=== PATIENT | male | born 1935 | race Caucasian/White ===

== ENCOUNTER → 2023-07-27 12:41 | Outpatient (CLI) | payer MEDICARE, SELFPAY ==
--- NOTE | 2023-07-27 | DI.US.S_ITS ---
ULTRASOUND OF RIGHT AXILLA: 07/27/2023 CLINICAL: Palpable right axilla lump by physician. No prior exams were available for comparison. Color flow and real-time ultrasound of the right axilla were performed. Pringle scale images of the real-time examination were reviewed. There is a mass in the right axilla corresponding to area of concern measuring 6.4 x 4.6 x 7.5cm. IMPRESSION: HIGHLY SUGGESTIVE OF MALIGNANCY There is a mass in the right axilla corresponding to area of concern measuring 6.4 x 4.6 x 7.5cm. This is highly suspicious for malignancy, not necessarily breast cancer. Clinical followup and complete staging is recommended given history of melanoma. This was conveyed to the patient. This exam was interpreted at Station ID: [id number]. Electronically Signed By: Doni Gutierrez M.D. /:07/27/2023 13:47:36 letter sent: Biopsy Required Ultrasound BI-RADS: 5 Highly suggestive of malignancy
== END ==
PROVIDERS: Family Provider Internal Medicine; PCP Internal Medicine; Referring Provider Internal Medicine; Visit Provider Internal Medicine
DX: N63.31 Unspecified lump in axillary tail of the right breast (principal); Z85.820 Personal history of malignant melanoma of skin
CPT/HCPCS: 76882

== ENCOUNTER → 2023-08-16 10:39 | Outpatient (CLI) | payer MEDICARE, SELFPAY ==
--- NOTE | 2023-08-16 | DI.RAD.S_ITS ---
PROCEDURE: FL BARIUM SWALLOW W SPEECH INDICATIONS: DYSPHAGIA COMPARISON: None. TECHNIQUE: Examination was conducted in conjunction with speech pathology per standard protocol. In the lateral projection, filming was performed of the patient swallowing. AP projection filming may also be performed with patient swallowing. COMPARISON: FINDINGS: Suboptimal evaluation due to patient cooperation and positioning (despite multiple attempts). Function: Early spillage of contrast into vallecula. At least penetration with thin liquid barium. No aspiration with nectar thick barium. No aspiration with barium coated cracker. Morphology: No cricopharyngeal bar is identified. No cervical esophageal webs. No Zenker's diverticulum. No strictures. IMPRESSION: At least penetration with thin liquid barium, but no aspiration with nectar thick barium. Please see speech pathologist report for further discussion. Dictated by: Alok Dotson M.D. on 08/16/2023 at 13:13 Approved by: Alok Dotson M.D. on 08/16/2023 at 13:14
--- NOTE | 2023-08-16 15:19 | ST.SWALLOW ---
Visit Care Team Role Provider Type Jeremias Caal MD Family Provider Physician Primary Care Provider Specialty: Internal Medicine Address: [address] [place] [address], [address], [place], [address] Email: [email or web address] VINNIE Adrian Attending Provider Non-Staff Referring Provider Specialty: Medical Address: [address] [place] [address], [id number] Email: Modified Barium Swallow Study CRYPTOZOOLOGIST Modified Barium Swallow Study Start: 08/16/23 13:33 Freq: Status: Active Protocol: Document 08/16/23 13:33 LNK (Rec: 08/16/23 15:19 LNK [id number]) Modified Barium Swallow Study Total Time Visit Start Time 11:00 Visit Stop Time 12:00 Total Visit Minutes 60 Referral Referring Physician VINNIE Wasserman Reason for Referral dysphagia Setting Setting Outpatient Care Patient Information Identification Type Name,Date of ,ID Wristband Patient History Pt was seen for a Modified Barium Swallow Study secondary to frequent coughing drinking liquids during meals. Pt is a resident at [facility]. According to his caregiver, Pt is on a regular texture diet and honey thick liquids. Pt has a PMH that includes GERD (with prescribed medication), cervical spine stenosis and dementia. Caregiver reported that the pt does not have a history of pneumonia nor recurrent respiratory illness. MBSS ordered to determine pt's aspiration risk as well as aid in POC development. Subjective Observations Pt was brought to the fluoroscopy room via wheel chair and Ayse sling for transfer to fluoro chair. Pt was accompanied by his caregiver, who provided background information and history. Pt positioning and cooperation interfered with comprehensive study. However, there was adequate view of the pharynx, larynx and upper trachea in order to determine aspiration risk. Patient Positioning Position View Lateral Imaging Lateral View Textures Administered Trials Presented Thin Liquid via Spoon (IDDSI 0 ),Thin Liquid via Straw (IDDSI 0),Mildly Thick Liquid via Straw (IDDSI 2),Regular (IDDSI 7) Barium Tablet No The IDDSI Framework Protocol: IDDSI.1 Oral Impairment Source: The Modified Barium Swallow Impairment Profile (MBSImP??) Lip Closure Escape beyond mid-chin Tongue Control During Bolus Hold Escape to lateral buccal cavity/floor of mouth (FOM) Bolus Preparation/Mastication Slow prolonged chewing/mashing with complete re-collection Bolus Transport/Lingual Motion Repetitive/disorganized tongue motion Oral Residue Trace residue lining oral structures,Residue collection on oral structures Location Tongue Initiation of Pharyngeal Swallow Bolus head at posterior laryngeal surface of epiglottis Additional Oral Impairment Observations Pt was not cooperative with OME or DKS assessment. Informal observation indicated structures and function to be WFL. Natural dentition was noted in good hygiene. Speech was noted to be clearly produced. Mastication appeared to have a rotary chew with adequate bolus formation, control and AP transition. Swallow initiation was delayed with premature spillage to the valeculla observed across trials. Pharyngeal Impairment Source: The Modified Barium Swallow Impairment Profile (MBSImP??) Soft Palate Elevation No bolus between soft palate & pharyngeal wall Laryngeal Elevation Part.sup.move.thyroid cart/ part.approx.arytenoids to epiglot.petiole Anterior Hyoid Excursion Partial anterior movement Epiglottic Movement Partial inversion Laryngeal Vestibular Closure Incomplete; narrow column air/ contrast in laryngeal vestibule Pharyngeal Stripping Wave Present - diminished Pharyngoesophageal Segment Opening Partial distention/partial duration; partial obstruction of flow Tongue Base Retraction Wide column of contrast/air betwn tongue base & post. pharyngeal wall Pharyngeal Residue Trace residue within/on pharyngeal structures Location Diffuse (>3 areas) Additional Pharyngeal Impairment Overall, pharyngeal structures Observations were weakened with diminished base of tongue retraction, hyolaryngeal elevation and movement, epiglottic inversion and posterior pharyngeal stripping. Closure and seal of the laryngeal vestibule was inconsistent with laryngeal penetration noted x4. Reflexive cough was adequate to clear larynx. Secondary to pharyngeal weakness, overall pharyngeal pooling at the base of tongue and valeculla was observed to pool in the larynx and flow to the vocal folds, eliciting reflexive cough. Aspiration was noted x1 only when the pt vocalized mid- swallow with thin liquids. No aspiration was observed with nectar thick liquids or regular texture trials. Pt demonstrated adequate airway protection with nectar thick liquids. Reflexive throat clear and cough observed to be affective in clearing contrast. Pt use of straw was noted to be safe with a natural chin tuck. Consecutive nectar thick liquid swallows with a straw were safely tolerated. Regular texture solid trial was safely swallowed. A/P View The IDDSI Framework Protocol: IDDSI.1 A/P View Observations Additional A-P Observations No A-P view obtained Clinical Impressions Dysphagia Type Oral,Pharyngeal Findings Mild oropharyngeal dysphagia was observed secondary to diminished strength and function of structures, Although diminished, the observations are consistent with normal aging. Penetration in elderly pts is not outside the typical observations. Aspiration was noted once when the pt vocalized in protest. Esperance thick liquids and regular texture were safely tolerated. Pt's reflexive cough appears to be affective in clearing airway. Upgrade of liquids from honey thick to nectar thick is recommended. Additionally, a Sullivan Free Water protocol is recommended to aid in pt hydration and improve overall quality of life. Oral cleanliness immediately prior to small amounts of water is critical in order to reduce oral bacteria entering the airway should aspiration occur. Small amounts of water can be observed into the body if aspirated; therefore proper oral hygiene is critical. The MBSS images and above results were shared and discussed with the pt's caregiver with written recommendations provided. Caregiver indicated she understood and agreed with plan. All questions were answered to her satisfaction. Rehabilitation Potential Poor Patient Appropriate for Therapy No Recommendations Diet Liquids Order Mildly Thick (IDDSI 2) Diet Order Regular (IDDSI 7) Medication Recommendation As Tolerated Comments Straws ok - No more than 2 consecutive swallows from straw. Aspiration Precautions Recommended Precautions Upright at 90 Degrees,Frequent Rest Periods,Small Bites/Sips ,Chin Tuck Treatment Plan Therapy Strategy Recommendations Sitting Upright (90 deg),Chin Tuck,Double Swallow,Small Bites and Sips Placement Recommendation After Discharge [facility]
== END ==
LOC: RAD 10:41
PROVIDERS: Family Provider Internal Medicine; PCP Internal Medicine; Referring Provider Nurse Practitioner Family; Visit Provider Nurse Practitioner Family
DX: R05.9 Cough, unspecified (principal); R13.12 Dysphagia, oropharyngeal phase
CPT/HCPCS: 74230; 92611

== ENCOUNTER 2023-08-17 15:32 | Inpatient (IN) | payer MEDICARE, SELFPAY ==
[2023-08-17] VITALS (24 sets, daily range): BP systolic 89–178; BP diastolic 48–98; PULSE 104–136; RESP 17–50; TEMP 37.8–38.7; O2SAT 88–94; BMI 26.8
--- NOTE | 2023-08-17 15:41 | DI.RAD.S_ITS ---
PROCEDURE: XR CHEST 1V INDICATIONS: weakness TECHNIQUE: One view of the chest was acquired. COMPARISON: Merged With [facility], CR, XR CHEST 1V, 03/30/2020, 18:37. FINDINGS: Surgical changes and devices: None. Lungs and pleura: Left perihilar airspace opacity. Mediastinum: Mediastinal contours appear normal. Heart size is normal. Bones and chest wall: No suspicious bony lesions. Overlying soft tissues appear unremarkable. IMPRESSION: Left perihilar airspace opacity, concerning for infection or aspiration. Dictated by: Alok Dotson M.D. on 08/17/2023 at 17:09 Approved by: Alok Dotson M.D. on 08/17/2023 at 17:09
[2023-08-17 16:50] LABS: Add Manual Diff / Slide Review NO; Basophils Absolute Auto 200 /uL (0-100); Eosinophils Absolute Auto 200 /uL (0-450); Eosinophils Percent Auto 1.1 % (2-4); Hematocrit 25.8 % (41-53); Hemoglobin 7.9 g/dL (13.5-17.5); Lymphocytes Absolute Auto 1400 /uL (1100-4500); Lymphocytes Percent Auto 8.4 % (25-40); Mean Corpuscular HGB Conc 30.6 % (30-36); Mean Corpuscular Hemoglobin 21.2 PG (26-34); Mean Corpuscular Volume 69.3 fL (80-100); Monocytes Absolute Auto 1200 /uL (0-900); Monocytes Percent Auto 7.2 % (3-14); Neutrophils Absolute Auto 13900 /uL (1500-7000); Neutrophils Percent Auto 82.3 % (50-75); Platelet Count 603 X10^3/uL (150-400); Red Blood Cell Count 3.72 X10^6/uL (4.5-5.9); Red Cell Distribution Width 16.7 % (11.6-14.8); White Blood Cell Count 16.9 X10^3/uL (4.5-11.0)
[2023-08-17] MEDS: SODIUM CHLORIDE 0.9% 1,000 ML 1000 ML IV (16:53)
[2023-08-17] MEDS: ACETAMINOPHEN IV 1,000 MG/100 ML VIAL 400 MG IV (16:53)
[2023-08-17 17:01] LABS: Lactate (Lactic Acid) 3.2 mmol/L (0.7-2.1)
[2023-08-17 17:03] LABS: Alanine Aminotransferase 36 IU/L (<50); Albumin 3.7 g/dL (3.5-5.0); Albumin Globulin Ratio 0.9 (1.0-2.8); Alkaline Phosphatase 96 U/L (38-126); Aspartate Aminotransferase 34 IU/L (17-59); BUN Creatinine Ratio 19.4 (6-22); Bilirubin Total 0.5 mg/dL (0.2-1.3); Blood Urea Nitrogen 20 mg/dL (9-20); Calcium 8.8 mg/dL (8.4-10.2); Carbon Dioxide 25 mmol/L (22-32); Chloride 100 mmol/L (98-107); Creatine Kinase 22 U/L (55-170); Estimated Glomerular Filt Rate > 60 mL/min (>60); Globulin 3.9 g/dL (1.7-4.1); Glucose 153 mg/dL (80-110); HEMOLYSIS < 15 (0-50); Potassium 4.6 mmol/L (3.4-5.1); Sodium 136 mmol/L (137-145); Total Protein 7.6 g/dL (6.3-8.2)
[2023-08-17 17:10] LABS: Adenovirus Not Detected (Not Detect); B. parapertussis Not Detected (Not Detecte); Bordetella pertussis Not Detected (Not Detect); Chlamydophila pneumoniae Not Detected (Not Detect); Coronavirus 229E Not Detected (Not Detect); Coronavirus HKU1 Not Detected (Not Detect); Coronavirus NL 63 Not Detected (Not Detect); Coronavirus OC43 Not Detected (Not Detect); Human Metapneumovirus Not Detected (Not Detect); Human Rhinovirus/Enterovirus Not Detected (Not Detect); Influenza A Not Detected (Not Detect); Influenza B Not Detected (Not Detect); Mycoplasma pneumoniae Not Detected (Not Detect); Parainfluenza Virus 1 Not Detected (Not Detect); Parainfluenza Virus 2 Not Detected (Not Detect); Parainfluenza Virus 3 Not Detected (Not Detect); Parainfluenza Virus 4 Not Detected (Not Detect); Respiratory Syncytial Virus Not Detected (Not Detect); SARS- CoV-2 Not Detected (Not Detecte)
[2023-08-17 17:14] LABS: Troponin I < 0.012 ng/mL (0.01-0.034)
[2023-08-17 17:18] LABS: Procalcitonin 0.13 ng/mL (<0.5)
[2023-08-17 17:41] LABS: Microcytosis 1+; Platelet Estimate Increased on smear
--- NOTE | 2023-08-17 18:00 | ED_ITS ---
HPI - Chest Pain General Chief Complaint: Chest Pain Stated Complaint: Chest pain Time Seen by Provider: 08/17/23 15:41 Source: EMS Mode of arrival: EMS History of Present Illness HPI narrative: 87-year-old male with history of dementia, recurrent aspiration pneumonia, hypertension presents from [facility] for chest pain. History is obtained from at bedside as patient has profound dementia and is unable to provide meaningful history. Apparently earlier today patient complained of chest pain to nursing staff and he was brought to the ER for evaluation. states that patient has also had intermittent blood in his urine, his doctor at the nursing facility and prescribed Macrobid, however it has not been started yet due to difficulties with the pharmacy. Related Data Home Medications Medication Instructions Recorded Confirmed timolol maleate 0.5 % eye drops 1 drp EYE-LEFT DAILY 90 days #10 mL 02/20/18 08/17/23 acetaminophen 325 mg tablet 1 - 2 mg PO QID PRN Pain, Mild 08/17/23 08/17/23 aluminum-mag hydroxide-simethicone 15 ml PO QID PRN heart burn 08/17/23 08/17/23 200 mg-200 mg-20 mg/5 mL oral susp (Mintox) bisacodyl 5 mg tablet 5 mg PO BEDTIME 08/17/23 08/17/23 bisacodyl 5 mg tablet,delayed 5 mg PO BEDTIME 08/17/23 08/17/23 release brimonidine 0.2 % eye drops 1 drp EYE-LEFT DAILY 08/17/23 08/17/23 citalopram 10 mg tablet 10 mg PO DAILY 08/17/23 08/17/23 docusate sodium 100 mg capsule 100 mg PO DAILY 08/17/23 08/17/23 guaifenesin 100 mg/5 mL oral liquid 200 mg PO Q4H PRN Cough 08/17/23 08/17/23 ketoconazole 2 % topical cream 1 applic topical DAILY 08/17/23 08/17/23 latanoprost 0.005 % eye drops 1 drp EYE-LEFT DAILY 08/17/23 08/17/23 meloxicam 7.5 mg tablet 7.5 mg PO DAILY 08/17/23 08/17/23 polyethylene glycol 3350 4 gram 4 g PO DAILY 08/17/23 08/17/23 oral powder packet quetiapine 25 mg tablet 25 mg PO DAILY 08/17/23 08/17/23 rivastigmine 9.5 mg/24 hour 1 patch transdermal DAILY 08/17/23 08/17/23 transdermal patch Previous Rx's Medication Instructions Recorded ondansetron 4 mg disintegrating 4 mg PO Q6H PRN nausea and 05/07/21 tablet vomiting #60 tabs tamsulosin 0.4 mg capsule (Flomax) 0.4 mg PO QDAY #90 caps 01/10/22 Allergies Allergy/AdvReac Type Severity Reaction Status Date / Time fenofibrate [FENOFIBRATE] Allergy Mild MUSCLE PAIN Verified 08/17/23 15:46 simvastatin [SIMVASTATIN] Allergy Mild MYALGIAS Verified 08/17/23 15:46 iodine Allergy ivp dye Verified 08/17/23 15:46 Penicillins Allergy Verified 08/17/23 15:46 Review of Systems Review of Systems Narrative: Limited due to dementia Patient History Medical History Incontinence without sensory awareness Cervical stenosis of spine Dementia Erectile dysfunction Nocturia Transient global amnesia Gastroesophageal reflux disease without esophagitis (04/10/17) Diverticulosis of large intestine without hemorrhage (06/15/15) Osteoarthritis of hip (10/21/14) Benign prostatic hyperplasia with urinary obstruction (05/30/14) Malignant melanoma (04/07/14) Hyperlipidemia, mixed Hypertension, essential Surgical History History of cataract removal with insertion of prosthetic lens (03/2010) History of knee replacement (2005) Status post appendectomy (1946) Family History Father Family history of diabetes mellitus Family history of Parkinson's disease Mother Family history of diabetes mellitus CVD (cardiovascular disease) Brother No problems noted. 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 travel history: over 6 months ago Smoking Status: Former smoker Tobacco: How many years used: 20 Smokeless tobacco user: other quit status: quit date established second hand exposure: No alcohol intake: current substance use type: does not use Smoking Status: Former smoker tobacco type: cigarettes alcohol intake frequency: a few times a week Alcohol type: wine Substance Use Type: does not use Exam Initial Vital Signs Initial Vital Signs: Vital Signs Pulse Rate 133 H 08/17/23 15:40 Respiratory Rate 32 H 08/17/23 15:40 Const: Awake, alert, no acute distress Cardiac: Tachycardia, regular rhythm RESP: unlabored, left lower lower inspiratory crackles GI: Atraumatic, soft, nontender Skin: Warm, Dry, intact, no rashes Neuro: AO x1, CN II-XII grossly intact, moves all extremities Course Orders Ordered: ED Orders 08/17/23 18:30 Urinalysis and Microscopic Stat Urine Culture Stat 08/17/23 18:39 CT abdomen pelvis w con Stat 08/17/23 19:20 Type and Screen Stat 08/17/23 19:58 CT angio chest PE protocol Stat Acetaminophen (Acetaminophen 325 Mg Tablet) 650 mg PO Q6H PRN PRN Reason: Fever/Mild Pain (1-3) Hydrocodone Bitart/Acetaminophen (Hydrocodone/Acet 5/325 Tablet) 1 tab PO Q4H PRN PRN Reason: Pain, Moderate (4-6) Enoxaparin Sodium (Enoxaparin 40 Mg/0.4 Ml Syringe) 40 mg SUBCUT DAILY BOBBY Cefepime HCl 1 gm/ Sodium (Chloride) 100 mls @ 200 mls/hr IV Q12H BOBBY Vancomycin HCl (Vancomycin) 1,250 mg in 250 mls @ 166.667 mls/hr IV Q24H BOBBY Naloxone HCl (Naloxone 0.4 Mg/Ml Vial) 0.2 mg IV Q2MIN PRN PRN Reason: Opiate Reversal Ondansetron HCl (Ondansetron 4 Mg/2 Ml Inj) 4 mg IV Q8HR PRN PRN Reason: Nausea And Vomiting Oxycodone HCl (Oxycodone Ir 5 Mg Tablet) 5 mg PO Q3H PRN PRN Reason: Pain, Moderate (4-6) Vancomycin HCl (Vancomycin Per Pharmacy) 1 request MISC NOW PRN PRN Reason: wound Discontinued Medications Sodium Chloride (Normal Saline 0.9%) 1,000 mls @ 1,000 mls/hr IV BOLUS ONE Stop: 08/17/23 17:33 Last Infusion: 08/17/23 17:56 Dose: Infused Documented By: Admin: 08/17/23 16:53 Dose: 1,000 mls/hr Documented By: VASILIY Acetaminophen (Ofirmev) 1,000 mg in 100 mls @ 400 mls/hr IV NOW ONE Stop: 08/17/23 16:48 Last Infusion: 08/17/23 17:10 Dose: Infused Documented By: Admin: 08/17/23 16:53 Dose: 400 mls/hr Documented By: VASILIY Cefepime HCl 2 gm/ Sodium (Chloride) 100 mls @ 200 mls/hr IV NOW ONE Stop: 08/17/23 18:25 Last Infusion: 08/17/23 20:54 Dose: Infused Documented By: Admin: 08/17/23 19:48 Dose: 200 mls/hr Documented By: Vancomycin HCl/Dextrose (Vancomycin) 2,000 mg in 400 mls @ 200 mls/hr IV NOW ONE Stop: 08/17/23 20:29 Last Infusion: 08/17/23 22:50 Dose: Infused Documented By: Admin: 08/17/23 20:50 Dose: 200 mls/hr Documented By: Vital Signs Vital signs: Vital Signs - 8 hr 08/17/23 18:00 08/17/23 18:00 08/17/23 18:30 Temperature 100.8 F H Pulse Rate 110 H 113 H Respiratory Rate 29 H 24 Blood Pressure 115/58 L Pulse Oximetry 92 91 08/17/23 18:31 08/17/23 18:31 08/17/23 19:05 Temperature Pulse Rate 113 H 114 H Respiratory Rate 24 50 H Blood Pressure 125/53 L Pulse Oximetry 91 88 L 08/17/23 19:08 08/17/23 19:08 08/17/23 19:30 Temperature Pulse Rate 113 H 109 H Respiratory Rate 24 29 H Blood Pressure 113/55 L Pulse Oximetry 88 L 94 08/17/23 19:30 08/17/23 20:00 08/17/23 20:00 Temperature Pulse Rate 110 H Respiratory Rate 31 H Blood Pressure 111/52 L 89/48 L Pulse Oximetry 93 08/17/23 20:03 08/17/23 20:03 02/22/24 20:41 Temperature Pulse Rate 110 H 110 H Respiratory Rate 30 H Blood Pressure 100/52 L Pulse Oximetry 93 92 08/17/23 21:00 08/17/23 21:01 08/17/23 21:01 Temperature Pulse Rate 108 H 109 H Respiratory Rate Blood Pressure 102/54 L Pulse Oximetry 92 93 08/17/23 21:30 08/17/23 21:30 08/17/23 22:00 Temperature Pulse Rate 105 H 104 H Respiratory Rate 18 Blood Pressure 99/50 L Pulse Oximetry 92 93 08/17/23 22:00 Temperature Pulse Rate Respiratory Rate 18 Blood Pressure 101/51 L Pulse Oximetry MDM - Chest Pain Differential Diagnosis Differential diagnosis: Likely fracture of rib, pneumothorax and stable angina Lab Data 08/17/23 16:25 08/17/23 16:25 Labs: Lab Results 08/17/23 08/17/23 08/17/23 Range/Units 15:46 16:25 18:30 WBC 16.9 H (4.5-11.0) X10^3/uL RBC 3.72 L (4.5-5.9) X10^6/uL Hgb 7.9 L (13.5-17.5) g/dL Hct 25.8 L (41-53) % MCV 69.3 L (80-100) fL MCH 21.2 L (26-34) PG MCHC 30.6 (30-36) % RDW 16.7 H (11.6-14.8) % Plt Count 603 H (150-400) X10^3/uL Neut % (Auto) 82.3 H (50-75) % Lymph % (Auto) 8.4 L (25-40) % [place] % (Auto) 7.2 (3-14) % Eos % (Auto) 1.1 L (2-4) % Baso % (Auto) 1.0 (0-2) % Neut # (Auto) 66142 H (7709-4069) /uL Lymph # (Auto) 1400 (7164-1502) /uL [place] # (Auto) 1200 H (0-900) /uL Eos # (Auto) 200 (0-450) /uL Baso # (Auto) 200 H (0-100) /uL Platelet Estimate Increased on smear RBC Morphology See below Microcytosis 1+ H Sodium 136 L (137-145) mmol/L Potassium 4.6 (3.4-5.1) mmol/L Chloride 100 (98-107) mmol/L Carbon Dioxide 25 (22-32) mmol/L BUN 20 (9-20) mg/dL Creatinine 1.03 (0.66-1.25) mg/dL Estimated GFR > 60 (>60) mL/min BUN/Creatinine Ratio 19.4 (6-22) Glucose 153 H (80-110) mg/dL Lactate 3.2 H (0.7-2.1) mmol/L Calcium 8.8 (8.4-10.2) mg/dL Total Bilirubin 0.5 (0.2-1.3) mg/dL AST 34 (17-59) IU/L ALT 36 (<50) IU/L Alkaline Phosphatase 96 (38-126) U/L Total Creatine Kinase 22 L (55-170) U/L Troponin I < 0.012 (0.01-0.034) ng/mL Total Protein 7.6 (6.3-8.2) g/dL Albumin 3.7 (3.5-5.0) g/dL Globulin 3.9 (1.7-4.1) g/dL Albumin/Globulin Ratio 0.9 L (1.0-2.8) Procalcitonin 0.13 (<0.5) ng/mL Urine Color Yellow Urine Appearance Clear Urine pH 5.0 (4.5-8.0) Ur Specific [place] 1.020 (1.000-1.035) Urine Protein Trace H (Negative) Urine Glucose (UA) Negative (Negative) g/dL Urine Ketones Negative (NEGATIVE) Urine Occult Blood 2+ H (Negative) Urine Nitrate Negative (Negative) Urine Bilirubin Negative (NEGATIVE) Urine Urobilinogen 1.0 (0.2) E.U./dL Ur Leukocyte Esterase Negative (NEGATIVE) Urine RBC 5-10/hpf H (0-5/HPF) Urine WBC 1-5/hpf (0-5/HPF) Ur Squamous Epith Cells 1-5 /hpf (0-5/HPF) Urine Bacteria None seen (None) Ur Culture Indicated? Specimen cultured Vol Urine Centrifuged 10ml (spun) Chlamy pneumoniae PCR Not detected (Not Detect) Adenovirus (PCR) Not detected (Not Detect) B.parapertussis DNA PCR Not detected (Not Detecte) Coronavirus OC43 (PCR) Not detected (Not Detect) Coronavirus HKU1 (PCR) Not detected (Not Detect) Coronavirus 229E (PCR) Not detected (Not Detect) SARS-CoV-2 (PCR) Not detected (Not Detecte) Coronavirus NL63 (PCR) Not detected (Not Detect) Human Metapneumovir PCR Not detected (Not Detect) Influenza Type A (PCR) Not detected (Not Detect) Influenza Type B (PCR) Not detected (Not Detect) M. pneumoniae (PCR) Not detected (Not Detect) Parainfluenza 1 (PCR) Not detected (Not Detect) Parainfluenza 2 (PCR) Not detected (Not Detect) Parainfluenza 3 (PCR) Not detected (Not Detect) Parainfluenza 4 (PCR) Not detected (Not Detect) RSV (PCR) Not detected (Not Detect) Entero/Rhino (PCR) Not detected (Not Detect) Blood Type Antibody Screen 08/17/23 Range/Units 19:20 WBC (4.5-11.0) X10^3/uL RBC (4.5-5.9) X10^6/uL Hgb (13.5-17.5) g/dL Hct (41-53) % MCV (80-100) fL MCH (26-34) PG MCHC (30-36) % RDW (11.6-14.8) % Plt Count (150-400) X10^3/uL Neut % (Auto) (50-75) % Lymph % (Auto) (25-40) % [place] % (Auto) (3-14) % Eos % (Auto) (2-4) % Baso % (Auto) (0-2) % Neut # (Auto) (0923-2813) /uL Lymph # (Auto) (3202-9892) /uL [place] # (Auto) (0-900) /uL Eos # (Auto) (0-450) /uL Baso # (Auto) (0-100) /uL Platelet Estimate RBC Morphology Microcytosis Sodium (137-145) mmol/L Potassium (3.4-5.1) mmol/L Chloride (98-107) mmol/L Carbon Dioxide (22-32) mmol/L BUN (9-20) mg/dL Creatinine (0.66-1.25) mg/dL Estimated GFR (>60) mL/min BUN/Creatinine Ratio (6-22) Glucose (80-110) mg/dL Lactate 2.0 (0.7-2.1) mmol/L Calcium (8.4-10.2) mg/dL Total Bilirubin (0.2-1.3) mg/dL AST (17-59) IU/L ALT (<50) IU/L Alkaline Phosphatase (38-126) U/L Total Creatine Kinase (55-170) U/L Troponin I (0.01-0.034) ng/mL Total Protein (6.3-8.2) g/dL Albumin (3.5-5.0) g/dL Globulin (1.7-4.1) g/dL Albumin/Globulin Ratio (1.0-2.8) Procalcitonin (<0.5) ng/mL Urine Color Urine Appearance Urine pH (4.5-8.0) Ur Specific [place] (1.000-1.035) Urine Protein (Negative) Urine Glucose (UA) (Negative) g/dL Urine Ketones (NEGATIVE) Urine Occult Blood (Negative) Urine Nitrate (Negative) Urine Bilirubin (NEGATIVE) Urine Urobilinogen (0.2) E.U./dL Ur Leukocyte Esterase (NEGATIVE) Urine RBC (0-5/HPF) Urine WBC (0-5/HPF) Ur Squamous Epith Cells (0-5/HPF) Urine Bacteria (None) Ur Culture Indicated? Vol Urine Centrifuged Chlamy pneumoniae PCR (Not Detect) Adenovirus (PCR) (Not Detect) B.parapertussis DNA PCR (Not Detecte) Coronavirus OC43 (PCR) (Not Detect) Coronavirus HKU1 (PCR) (Not Detect) Coronavirus 229E (PCR) (Not Detect) SARS-CoV-2 (PCR) (Not Detecte) Coronavirus NL63 (PCR) (Not Detect) Human Metapneumovir PCR (Not Detect) Influenza Type A (PCR) (Not Detect) Influenza Type B (PCR) (Not Detect) M. pneumoniae (PCR) (Not Detect) Parainfluenza 1 (PCR) (Not Detect) Parainfluenza 2 (PCR) (Not Detect) Parainfluenza 3 (PCR) (Not Detect) Parainfluenza 4 (PCR) (Not Detect) RSV (PCR) (Not Detect) Entero/Rhino (PCR) (Not Detect) Blood Type AB Positive Antibody Screen Negative MDM Narrative Medical decision making narrative: Brought over for chest pain, incidentally mentioned to be having blood in his urine for several days. Patient is demented, resting comfortably, in no acute distress. He was noted to be febrile, tachycardic, tachypneic on arrival. Sepsis bundle ordered with a L of IV fluids and Tylenol. Preliminary chest x-ray shows left-sided pneumonia. is at bedside and states that patient has a history of aspiration and requests nectar thick liquids, however she then subsequently stated that patient eats and would like to have something to eat to nursing staff. Due to pneumonia with history of aspiration vancomycin and cefepime ordered for coverage. It was advised to that patient not consume solid foods to avoid worsening aspiration. Laboratory work is significant for leukocytosis with WBC count 16.9, anemia with hemoglobin 7.9 (previous from 03/2021 15.6), lactate 3.2, troponin undetectable, sodium, potassium, creatinine within normal limits. Urinalysis shows no signs of infection but there is occult blood and 5-10 RBCs. Given that patient is now anemic with intermittent history of hematuria plan to order CT of the abdomen and pelvis with IV contrast. CT of the abdomen and pelvis incidentally found left-sided pleural effusion with possible mass. Cancer noted to be in the differential, patient has no reported history of cancer in his medical record. Patient is still tachycardic with oxygen saturations hovering around 92%. With this questionable history of cancer and lung mass we will order a CT angio of the chest. CT angio limited, but there was no obvious pulmonary embolism. There is no definite mass seen on CT of the chest. There is still mediastinal adenopathy identified, but I do still strongly believe that patient's symptoms are at least partially caused by pneumonia. Plan to admit for further treatment. Discharge Plan Departure Patient Disposition: Admitted As Inpatient Clinical Impression: Pneumonia, Anemia, Sepsis Admit Date/Time: 08/17/23 22:27 Admit Provider: Kenton Mckeon
[2023-08-17 18:20] LABS: Reflexed Lactate in 2 Hours Y
--- NOTE | 2023-08-17 18:39 | DI.CT.S_ITS ---
PROCEDURE: CT ABDOMEN PELVIS W CON INDICATIONS: INTERMITTENT PAINLESS HEMATURIA TECHNIQUE: After the administration of intravenous contrast, axial sections acquired from the lung bases to the pubic symphysis. Coronal and sagittal reformats were performed. For radiation dose reduction, the following was used: automated exposure control, adjustment of mA and/or kV according to patient size. COMPARISON: [facility], CT, CT ABDOMEN PELVIS W CON, 04/04/2021, 15:29. FINDINGS: Image quality: Diagnostic. Lower Chest: Partially loculated left pleural effusion with adjacent atelectasis versus consolidation. Possible masslike consolidation within the left lower lobe adjacent to the fusion. Nodule in the superior aspect of the right lower lobe measuring 1.7 cm. Additional subcentimeter pulmonary nodules are noted. Prominent mediastinal lymph nodes are partially visualized. Large right axillary lymph node measuring 6.2 x 4.4 cm. Heart is normal size. Moderate coronary artery calcifications. ABDOMEN: Liver: No solid mass. Hepatic simple appearing cysts are present. Gallbladder: No radiopaque gallstones or wall thickening. Biliary ducts: No biliary dilation. Pancreas: No ductal dilation. Spleen: Hypodense lesion within the spleen measuring 4.2 x 3.3 cm. Adrenal Glands: No adrenal nodules. Kidneys and Ureters: No hydronephrosis. No solid mass. No complex renal cystic lesion which requires follow up. Stomach and Bowel: Normal colonic caliber, without significant wall thickening. Stool ball in the rectum measuring 6.8 x 5.4 cm with mild associated rectal wall thickening and surrounding inflammatory changes. Residual barium is seen within the colon from recent barium swallow study. Peritoneum: No abnormal intraperitoneal fluid. No free air. Ventral Wall: No significant ventral hernia. Abdominal Nodes: No retroperitoneal or mesenteric adenopathy by size criteria. Vessels: Aorta and inferior vena cava are normal in size. Atherosclerotic vascular calcifications. PELVIS: Pelvic Organs: Prostate is enlarged. Bladder: Reed catheter in place with a decompressed urinary bladder, limiting evaluation. Pelvic Nodes: No enlarged lymph nodes. Miscellaneous: Small bilateral fat containing inguinal hernias are seen. Bones: No aggressive osseous abnormality. Left hip arthroplasty. Decreased osseous mineralization. Multilevel degenerative changes of the spine. IMPRESSION: 1. Partially loculated small to moderate left pleural effusion with possible adjacent masslike consolidation. Additional bilateral pulmonary nodules measuring up to 1.7 cm, concerning for metastatic disease. 2. Additional findings concerning for metastatic disease of unknown primary including right axillary lymph node measuring 6.2 cm, splenic lesion measuring 4.2 cm and prominent mediastinal lymph nodes. 3. Stool ball in the rectum measuring 6.8 cm with a rectal wall thickening and surrounding inflammatory changes concerning for impaction and stercoral colitis. 4. Prostatomegaly. Dictated by: Scott Grullon M.D. on 08/17/2023 at 19:33 Approved by: Scott Grullon M.D. on 08/17/2023 at 19:41
[2023-08-17 18:51] LABS: Appearance Urine UA CLEAR; Bilirubin Urine UA NEGATIVE (NEGATIVE); Color Urine UA YELLOW; Glucose Urine UA NEGATIVE (Negative); Ketones Urine UA NEGATIVE (NEGATIVE); Leukocyte Esterase Urine UA NEGATIVE (NEGATIVE); Nitrite Urine UA NEGATIVE (Negative); Occult Blood Urine UA 2+ (Negative); Protein Urine UA TRACE (Negative)
[2023-08-17 19:05] LABS: Bacteria Urine None Seen; RBC Urine 5-10/HPF (0-5/HPF); Squamous Epithelial Cell Urine 1-5 /HPF (0-5/HPF); Urine Volume 10mL (spun); WBC Urine 1-5/HPF (0-5/HPF)
[2023-08-17 19:06] LABS: Culture Indicated Urine Specimen Cultured
[2023-08-17] MEDS: CEFEPIME 2 GM in SODIUM CHLORIDE 0.9% 100 ML IV (19:48)
--- NOTE | 2023-08-17 19:58 | DI.CT.S_ITS ---
PROCEDURE: CT ANGIO CHEST PE PROTOCOL INDICATIONS: CHEST PAIN, TACHY, LUNG MASS TECHNIQUE: After the administration of intravenous contrast, 2 mm thick sections acquired from the pulmonary apices to the posterior costophrenic angles. 3-dimensional maximum intensity projection (MIP) coronal and sagittal reformats were then acquired through the thorax. For radiation dose reduction, the following was used: automated exposure control, adjustment of mA and/or kV according to patient size. COMPARISON: [facility], CR, XR CHEST 1V, 08/17/2023, 16:10. FINDINGS: Image quality: There is suboptimal timing of contrast bolus limiting evaluation of the pulmonary arteries. The pulmonary arteries were adequately visualized to level of the proximal segmental pulmonary arteries.. Pulmonary arteries: Pulmonary arteries are normal in size, and demonstrate no intraluminal filling defects to suggest central pulmonary embolism. Lower Neck: No enlarged lymph nodes. Thyroid: No thyroid nodules which require sonographic follow up, per consensus guidelines. Axillae: There are enlarged right axillary lymph nodes measuring up to 6.7 x 5.1 cm in axial transverse dimension. Chest Wall: Unremarkable. Bones: Multilevel thoracic spondylosis. No acute compression fractures. Heterogeneous appearance of the osseous structures without definite lytic or sclerotic lesions. This may be related to osteopenia. Lungs and Pleura: No pneumothorax. Trace right and small left bilateral pleural effusions with associated compressive atelectasis. Moderate atelectasis of the left lower lobe. Multiple scattered variably sized pulmonary nodules are seen throughout the bilateral hemithoraces involving all lobes of the lungs. Largest noted in the right lower lobe measuring 2.1 cm in diameter (135/series 5). Heart: Heart size is normal. No pericardial effusion. Multivessel atherosclerotic calcifications of the coronary arteries. Thoracic Vessels: No aortic aneurysm. Mediastinum and Drea: Multiple scattered enlarged mediastinal lymph nodes are visualized. Largest measures approximately 1.5 cm in the right paratracheal region (49/series 4). Prominent right hilar lymph nodes. Esophagus: No wall thickening. Small hiatal hernia. Upper Abdomen: Visualized upper abdomen solid organs and bowel loops appear normal. Incompletely imaged suspected periportal lymphadenopathy. IMPRESSION: Limited evaluation secondary to suboptimal timing of IV contrast bolus. No acute pulmonary embolus to the level of the proximal segmental pulmonary arteries. No evidence for acute right-sided heart strain. Trace right and small left bilateral pleural effusions with moderate atelectasis of the left lower lobe as well as compressive atelectasis of the dependent portions of the bilateral lower lobes. Although no definite focal mass identified. A pulmonary mass within area of left lower lobe consolidation not excluded. Large right axillary adenopathy with multiple scattered bilateral pulmonary nodules suspicious for metastatic disease. There is also mediastinal adenopathy. A definite primary not visualized. Heterogeneous appearance of the osseous structures without definite focal osseous lesions. No pathologic fractures or acute compression fractures identified. Partially imaged upper abdomen with possible periportal adenopathy. Dictated by: Sony Luna M.D. on 08/17/2023 at 21:17 Approved by: Sony Luna M.D. on 08/17/2023 at 21:29
[2023-08-17] MEDS: VANCOMYCIN 2,000 MG/400 ML PIGGYBACK 200 MG IV (20:50)
[2023-08-18 00:28] VITALS: TEMP 37.1
--- NOTE | 2023-08-18 03:04 | P.HP_ITS ---
History of Present Illness History of Present Illness Chief complaint: Chest pain Narrative: 87 years old male with a past medical history of hypertension, advanced dementia, recurrent aspiration pneumonia and other medical issues was brought in from the memory care unit for apparent chest pain. Patient has a history of left shoulder trauma and did complain of chest pain. The nature of chest pain is unclear and patient is not a very good historian due to profound dementia. Most of the history has been obtained from the chart and from caregiver. Currently with the spouse is not at the bedside. Apparently patient has had intermittent blood in the urine and was prescribed Macrobid for possible UTI but that has not been started yet. In the ED noted to have inspiratory crackles at the left base. Virus panel was negative and subsequent labs showed a f WBC count of 6.9 with a hemoglobin of 7.9. The previous hemoglobin noted in the chart was in March 2021 that showed a hemoglobin of 15.6. No active bleeding per history. Initially noted to be febrile with tachypneic and tachycardic. Chest x-ray was concerning for left-sided pneumonia. There was some concerns for aspiration pneumonia in the past and patient was initiated on IV cefepime/vancomycin in the emergency room and admitted for further evaluation [facility] Medical History Incontinence without sensory awareness Cervical stenosis of spine Dementia Erectile dysfunction Nocturia Transient global amnesia Gastroesophageal reflux disease without esophagitis (04/10/17) Diverticulosis of large intestine without hemorrhage (06/15/15) Osteoarthritis of hip (10/21/14) Benign prostatic hyperplasia with urinary obstruction (05/30/14) Malignant melanoma (04/07/14) Hyperlipidemia, mixed Hypertension, essential Surgical History History of cataract removal with insertion of prosthetic lens (03/2010) History of knee replacement (2005) Status post appendectomy (1946) Family History Father Family history of diabetes mellitus Family history of Parkinson's disease Mother Family history of diabetes mellitus CVD (cardiovascular disease) Brother No problems noted. 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 travel history: over 6 months ago Smoking Status: Former smoker Tobacco: How many years used: 20 Smokeless tobacco user: other quit status: quit date established second hand exposure: No alcohol intake: current substance use type: does not use Meds Home Medications and Allergies Home Medications Medication Instructions Recorded Confirmed Type timolol maleate 0.5 % eye drops 1 drp EYE-LEFT DAILY 90 days #10 mL 02/20/18 08/17/23 History ondansetron 4 mg disintegrating 4 mg PO Q6H PRN nausea and 05/07/21 08/17/23 Rx tablet vomiting #60 tabs tamsulosin 0.4 mg capsule (Flomax) 0.4 mg PO QDAY #90 caps 01/10/22 08/17/23 Rx acetaminophen 325 mg tablet 1 - 2 mg PO QID PRN Pain, Mild 08/17/23 08/17/23 History aluminum-mag hydroxide-simethicone 15 ml PO QID PRN heart burn 08/17/23 08/17/23 History 200 mg-200 mg-20 mg/5 mL oral susp (Mintox) bisacodyl 5 mg tablet 5 mg PO BEDTIME 08/17/23 08/17/23 History bisacodyl 5 mg tablet,delayed 5 mg PO BEDTIME 08/17/23 08/17/23 History release brimonidine 0.2 % eye drops 1 drp EYE-LEFT DAILY 08/17/23 08/17/23 History citalopram 10 mg tablet 10 mg PO DAILY 08/17/23 08/17/23 History docusate sodium 100 mg capsule 100 mg PO DAILY 08/17/23 08/17/23 History guaifenesin 100 mg/5 mL oral liquid 200 mg PO Q4H PRN Cough 08/17/23 08/17/23 History ketoconazole 2 % topical cream 1 applic topical DAILY 08/17/23 08/17/23 History latanoprost 0.005 % eye drops 1 drp EYE-LEFT DAILY 08/17/23 08/17/23 History meloxicam 7.5 mg tablet 7.5 mg PO DAILY 08/17/23 08/17/23 History polyethylene glycol 3350 4 gram 4 g PO DAILY 08/17/23 08/17/23 History oral powder packet quetiapine 25 mg tablet 25 mg PO DAILY 08/17/23 08/17/23 History rivastigmine 9.5 mg/24 hour 1 patch transdermal DAILY 08/17/23 08/17/23 History transdermal patch Allergies Allergy/AdvReac Type Severity Reaction Status Date / Time fenofibrate [FENOFIBRATE] Allergy Mild MUSCLE PAIN Verified 08/17/23 15:46 simvastatin [SIMVASTATIN] Allergy Mild MYALGIAS Verified 08/17/23 15:46 iodine Allergy ivp dye Verified 08/17/23 15:46 Penicillins Allergy Verified 08/17/23 15:46 Review of Systems Review of Systems Narrative: Unable to do 12 point review of system since patient is confused Exam Vital Signs (past 8 hours): - 08/17/23 19:05 08/17/23 19:08 08/17/23 19:08 Temperature Pulse Rate 114 H 113 H Respiratory Rate 50 H 24 Blood Pressure 113/55 L Pulse Oximetry 88 L 88 L Oxygen Delivery Method Oxygen Flow Rate 08/17/23 19:30 08/17/23 19:30 08/17/23 20:00 Temperature Pulse Rate 109 H 110 H Respiratory Rate 29 H 31 H Blood Pressure 111/52 L Pulse Oximetry 94 93 Oxygen Delivery Method Oxygen Flow Rate 08/17/23 20:00 08/17/23 20:03 08/17/23 20:03 Temperature Pulse Rate 110 H Respiratory Rate 30 H Blood Pressure 89/48 L 100/52 L Pulse Oximetry 93 Oxygen Delivery Method Oxygen Flow Rate 08/17/23 20:41 08/17/23 21:00 08/17/23 21:01 Temperature Pulse Rate 110 H 108 H 109 H Respiratory Rate Blood Pressure Pulse Oximetry 92 92 93 Oxygen Delivery Method Oxygen Flow Rate 08/17/23 21:01 08/17/23 21:30 08/17/23 21:30 Temperature Pulse Rate 105 H Respiratory Rate 18 Blood Pressure 102/54 L 99/50 L Pulse Oximetry 92 Oxygen Delivery Method Oxygen Flow Rate 08/17/23 22:00 08/17/23 22:00 08/17/23 22:30 Temperature Pulse Rate 104 H Respiratory Rate 18 Blood Pressure 101/51 L 111/51 L Pulse Oximetry 93 Oxygen Delivery Method Oxygen Flow Rate 08/17/23 22:30 08/17/23 22:50 08/17/23 23:14 Temperature 100.1 F H Pulse Rate 109 H 115 H Respiratory Rate 17 Blood Pressure 139/98 H Pulse Oximetry 93 94 Oxygen Delivery Method Nasal Cannula Oxygen Flow Rate 1 08/18/23 00:28 Temperature 98.8 F Pulse Rate Respiratory Rate Blood Pressure Pulse Oximetry Oxygen Delivery Method Oxygen Flow Rate Oxygen Delivery Method Nasal Cannula Oxygen Flow Rate 1 Narrative Exam Narrative: Patient is awake and does not appear to be in acute distress but is very confused and hard of hearing Objective Labs 08/17/23 16:25 08/17/23 16:25 Labs: Laboratory Results - last 24 hr 08/17/23 08/17/23 08/17/23 15:46 16:25 18:30 WBC 16.9 H RBC 3.72 L Hgb 7.9 L Hct 25.8 L MCV 69.3 L MCH 21.2 L MCHC 30.6 RDW 16.7 H Plt Count 603 H Neut % (Auto) 82.3 H Lymph % (Auto) 8.4 L [place] % (Auto) 7.2 Eos % (Auto) 1.1 L Baso % (Auto) 1.0 Neut # (Auto) 66733 H Lymph # (Auto) 1400 [place] # (Auto) 1200 H Eos # (Auto) 200 Baso # (Auto) 200 H Platelet Estimate Increased on smear RBC Morphology See below Microcytosis 1+ H Sodium 136 L Potassium 4.6 Chloride 100 Carbon Dioxide 25 BUN 20 Creatinine 1.03 Estimated GFR > 60 BUN/Creatinine Ratio 19.4 Glucose 153 H Lactate 3.2 H Calcium 8.8 Total Bilirubin 0.5 AST 34 ALT 36 Alkaline Phosphatase 96 Total Creatine Kinase 22 L Troponin I < 0.012 Total Protein 7.6 Albumin 3.7 Globulin 3.9 Albumin/Globulin Ratio 0.9 L Procalcitonin 0.13 Urine Color Yellow Urine Appearance Clear Urine pH 5.0 Ur Specific [place] 1.020 Urine Protein Trace H Urine Glucose (UA) Negative Urine Ketones Negative Urine Occult Blood 2+ H Urine Nitrate Negative Urine Bilirubin Negative Urine Urobilinogen 1.0 Ur Leukocyte Esterase Negative Urine RBC 5-10/hpf H Urine WBC 1-5/hpf Ur Squamous Epith Cells 1-5 /hpf Urine Bacteria None seen Ur Culture Indicated? Specimen cultured Vol Urine Centrifuged 10ml (spun) Chlamy pneumoniae PCR Not detected Adenovirus (PCR) Not detected B.parapertussis DNA PCR Not detected Coronavirus OC43 (PCR) Not detected Coronavirus HKU1 (PCR) Not detected Coronavirus 229E (PCR) Not detected SARS-CoV-2 (PCR) Not detected Coronavirus NL63 (PCR) Not detected Human Metapneumovir PCR Not detected Influenza Type A (PCR) Not detected Influenza Type B (PCR) Not detected M. pneumoniae (PCR) Not detected Parainfluenza 1 (PCR) Not detected Parainfluenza 2 (PCR) Not detected Parainfluenza 3 (PCR) Not detected Parainfluenza 4 (PCR) Not detected RSV (PCR) Not detected Entero/Rhino (PCR) Not detected Blood Type Antibody Screen 08/17/23 19:20 WBC RBC Hgb Hct MCV MCH MCHC RDW Plt Count Neut % (Auto) Lymph % (Auto) [place] % (Auto) Eos % (Auto) Baso % (Auto) Neut # (Auto) Lymph # (Auto) [place] # (Auto) Eos # (Auto) Baso # (Auto) Platelet Estimate RBC Morphology Microcytosis Sodium Potassium Chloride Carbon Dioxide BUN Creatinine Estimated GFR BUN/Creatinine Ratio Glucose Lactate 2.0 Calcium Total Bilirubin AST ALT Alkaline Phosphatase Total Creatine Kinase Troponin I Total Protein Albumin Globulin Albumin/Globulin Ratio Procalcitonin Urine Color Urine Appearance Urine pH Ur Specific [place] Urine Protein Urine Glucose (UA) Urine Ketones Urine Occult Blood Urine Nitrate Urine Bilirubin Urine Urobilinogen Ur Leukocyte Esterase Urine RBC Urine WBC Ur Squamous Epith Cells Urine Bacteria Ur Culture Indicated? Vol Urine Centrifuged Chlamy pneumoniae PCR Adenovirus (PCR) B.parapertussis DNA PCR Coronavirus OC43 (PCR) Coronavirus HKU1 (PCR) Coronavirus 229E (PCR) SARS-CoV-2 (PCR) Coronavirus NL63 (PCR) Human Metapneumovir PCR Influenza Type A (PCR) Influenza Type B (PCR) M. pneumoniae (PCR) Parainfluenza 1 (PCR) Parainfluenza 2 (PCR) Parainfluenza 3 (PCR) Parainfluenza 4 (PCR) RSV (PCR) Entero/Rhino (PCR) Blood Type AB Positive Antibody Screen Negative Assessment & Plan Assessment & Plan narrative: 87 years old male with a past medical history of hypertension, advanced dementia, recurrent aspiration pneumonia and other medical issues was brought in from the memory care unit for apparent chest pain. Patient has a history of left shoulder trauma and did complain of chest pain. The nature of chest pain is unclear and patient is not a very good historian due to profound dementia. Most of the history has been obtained from the chart and from caregiver. Currently with the spouse is not at the bedside. Apparently patient has had intermittent blood in the urine and was prescribed Macrobid for possible UTI but that has not been started yet. In the ED noted to have inspiratory crackles at the left base. Virus panel was negative and subsequent labs showed a f WBC count of 6.9 with a hemoglobin of 7.9. The previous hemoglobin noted in the chart was in March 2021 that showed a hemoglobin of 15.6. No active bleeding per history. Initially noted to be febrile with tachypneic and tachycardic. Chest x-ray was concerning for left-sided pneumonia. There was some concerns for aspiration pneumonia in the past and patient was initiated on IV cefepime/vancomycin in the emergency room and admitted for further evaluation 1. Shortness of breath or chest pain/tachypnea/tachycardia/fever with concerns for pneumonia noted on the chest x-ray. Patient is not a good historian but is a [facility] resident. Watch closely for any aspiration and for now continue the cefepime/vancomycin initiated in the emergency room. Patient has allergies to penicillin but tolerated the cefepime. Watch the blood pressure and heart rate closely Resume the nectar thick liquids as given at the [facility]. Consult speech to rule out aspiration Chest pain appears more of a musculoskeletal especially in the left shoulder from trauma history. Does not appear to be cardiac in nature but monitor for now 2. Anemia. No active bleeding. Unclear etiology. Check a stool occult and iron/B12/folate/reticulocyte count for further evaluation 3 depression resume the home Celexa 4 glaucoma resume home latanoprost/timolol 5 dementia resume the home Seroquel 6. DVT prophylaxis will be with SCDs. Hold off on the chemoprophylaxis while trending the hemoglobin closely Goals of care reviewed and per records patient is a DNR Quality VTE Deep Vein Thrombosis/Pulmonary Embolism Present on Admission: No
[2023-08-18 04:00] VITALS: BP 122/51; PULSE 112; RESP 16; TEMP 37.1; O2SAT 93
[2023-08-18 04:31] LABS: Reticulocyte Count, Percent 1.5 % (0.9-2.6)
[2023-08-18 04:32] LABS: Add Manual Diff / Slide Review NO; Basophils Absolute Auto 200 /uL (0-100); Basophils Percent Auto 1.1 % (0-2); Eosinophils Absolute Auto 100 /uL (0-450); Eosinophils Percent Auto 0.5 % (2-4); Hematocrit 25.2 % (41-53); Hemoglobin 7.7 g/dL (13.5-17.5); Lymphocytes Absolute Auto 2300 /uL (1100-4500); Mean Corpuscular HGB Conc 30.5 % (30-36); Mean Corpuscular Hemoglobin 21.1 PG (26-34); Mean Corpuscular Volume 69.3 fL (80-100); Monocytes Absolute Auto 1900 /uL (0-900); Monocytes Percent Auto 8.2 % (3-14); Neutrophils Absolute Auto 18100 /uL (1500-7000); Neutrophils Percent Auto 80.2 % (50-75); Platelet Count 561 X10^3/uL (150-400); Red Blood Cell Count 3.64 X10^6/uL (4.5-5.9); Red Cell Distribution Width 16.5 % (11.6-14.8); White Blood Cell Count 22.6 X10^3/uL (4.5-11.0)
[2023-08-18 04:47] LABS: Blood Urea Nitrogen 17 mg/dL (9-20); Calcium 8.4 mg/dL (8.4-10.2); Carbon Dioxide 23 mmol/L (22-32); Chloride 103 mmol/L (98-107); Estimated Glomerular Filt Rate > 60 mL/min (>60); Glucose 148 mg/dL (80-110); HEMOLYSIS < 15 (0-50); Phosphorous 3.3 mg/dL (2.3-3.7); Potassium 4.4 mmol/L (3.4-5.1); Sodium 136 mmol/L (137-145)
[2023-08-18 04:54] LABS: NT-proBNP (BNP-Adult 18+) 758 pg/mL (<450)
[2023-08-18 05:14] LABS: Microcytosis 1+; Platelet Estimate Increased on smear
[2023-08-18 05:20] LABS: INR 1.4 (0.9-1.3); Prothrombin Time 15.6 SECONDS (9.4-12.5)
[2023-08-18 05:28] LABS: HEMOLYSIS 30 (0-50); Iron 29 ug/dL (49-181)
[2023-08-18 05:39] LABS: Percent Iron Saturation 10 % (20-50); Total Iron Binding Capacity 290 ug/dL (261-462); Transferrin 222 mg/dL (206-381)
[2023-08-18 06:18] LABS: Vitamin B12 585 pg/mL (239-931)
--- NOTE | 2023-08-18 07:31 | PM.HP.1 ---
History of Present Illness History of Present Illness Chief complaint: Chest pain Narrative: From Night Doctor: 87 years old male with a past medical history of hypertension, advanced dementia, recurrent aspiration pneumonia and other medical issues was brought in from the memory care unit for apparent chest pain. Patient has a history of left shoulder trauma and did complain of chest pain. The nature of chest pain is unclear and patient is not a very good historian due to profound dementia. Most of the history has been obtained from the chart and from caregiver. Currently with the spouse is not at the bedside. Apparently patient has had intermittent blood in the urine and was prescribed Macrobid for possible UTI but that has not been started yet. In the ED noted to have inspiratory crackles at the left base. Virus panel was negative and subsequent labs showed a f WBC count of 6.9 with a hemoglobin of 7.9. The previous hemoglobin noted in the chart was in March 2021 that showed a hemoglobin of 15.6. No active bleeding per history. Initially noted to be febrile with tachypneic and tachycardic. Chest x-ray was concerning for left-sided pneumonia. There was some concerns for aspiration pneumonia in the past and patient was initiated on IV cefepime/vancomycin in the emergency room and admitted for further evaluation. Additional history: Patient is sleeping comfortably, history is obtained from . He has been at a memory care unit. He is mostly sedentary. Developed chest pain yesterday which prompted a visit to the ED where he was found to have a fever and pneumonia. He has a history of recurrent aspiration. A modified barium 2 days ago suggested that he should be on nectar thick liquids, bolt upright and small amounts of food at a time. His was concerned about a possible urinary tract infection due to transient hematuria several days ago. A Reed catheter is in place with clear urine. A urine will be sent. [facility], [facility] Medical History Incontinence without sensory awareness Cervical stenosis of spine Dementia Erectile dysfunction Nocturia Transient global amnesia Gastroesophageal reflux disease without esophagitis (04/10/17) Diverticulosis of large intestine without hemorrhage (06/15/15) Osteoarthritis of hip (10/21/14) Benign prostatic hyperplasia with urinary obstruction (05/30/14) Malignant melanoma (04/07/14) Hyperlipidemia, mixed Hypertension, essential Surgical History History of cataract removal with insertion of prosthetic lens (03/2010) History of knee replacement (2005) Status post appendectomy (194) Family History Father Family history of diabetes mellitus Family history of Parkinson's disease Mother Family history of diabetes mellitus CVD (cardiovascular disease) Brother No problems noted. 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 travel history: over 6 months ago Smoking Status: Former smoker Tobacco: How many years used: 20 Smokeless tobacco user: other quit status: quit date established second hand exposure: No alcohol intake: current substance use type: does not use Meds Home Medications and Allergies Home Medications Medication Instructions Recorded Confirmed Type timolol maleate 0.5 % eye drops 1 drp EYE-LEFT DAILY 90 days #10 mL 02/20/18 08/17/23 History ondansetron 4 mg disintegrating 4 mg PO Q6H PRN nausea and 05/07/21 08/17/23 Rx tablet vomiting #60 tabs tamsulosin 0.4 mg capsule (Flomax) 0.4 mg PO QDAY #90 caps 01/10/22 08/17/23 Rx acetaminophen 325 mg tablet 1 - 2 mg PO QID PRN Pain, Mild 08/17/23 08/17/23 History aluminum-mag hydroxide-simethicone 15 ml PO QID PRN heart burn 08/17/23 08/17/23 History 200 mg-200 mg-20 mg/5 mL oral susp (Mintox) bisacodyl 5 mg tablet 5 mg PO BEDTIME 08/17/23 08/17/23 History bisacodyl 5 mg tablet,delayed 5 mg PO BEDTIME 08/17/23 08/17/23 History release brimonidine 0.2 % eye drops 1 drp EYE-LEFT DAILY 08/17/23 08/17/23 History citalopram 10 mg tablet 10 mg PO DAILY 08/17/23 08/17/23 History docusate sodium 100 mg capsule 100 mg PO DAILY 08/17/23 08/17/23 History guaifenesin 100 mg/5 mL oral liquid 200 mg PO Q4H PRN Cough 08/17/23 08/17/23 History ketoconazole 2 % topical cream 1 applic topical DAILY 08/17/23 08/17/23 History latanoprost 0.005 % eye drops 1 drp EYE-LEFT DAILY 08/17/23 08/17/23 History meloxicam 7.5 mg tablet 7.5 mg PO DAILY 08/17/23 08/17/23 History polyethylene glycol 3350 4 gram 4 g PO DAILY 08/17/23 08/17/23 History oral powder packet quetiapine 25 mg tablet 25 mg PO DAILY 08/17/23 08/17/23 History rivastigmine 9.5 mg/24 hour 1 patch transdermal DAILY 08/17/23 08/17/23 History transdermal patch Allergies Allergy/AdvReac Type Severity Reaction Status Date / Time fenofibrate [FENOFIBRATE] Allergy Mild MUSCLE PAIN Verified 08/17/23 15:46 simvastatin [SIMVASTATIN] Allergy Mild MYALGIAS Verified 08/17/23 15:46 iodine Allergy ivp dye Verified 08/17/23 15:46 Penicillins Allergy Verified 08/17/23 15:46 Review of Systems Review of Systems Narrative: All else unremarkable except as noted in the history and physical. Exam Vital Signs (past 8 hours): - 08/18/23 00:28 08/18/23 04:00 Temperature 98.8 F 98.8 F Pulse Rate 112 H Respiratory Rate 16 Blood Pressure 122/51 L Pulse Oximetry 93 Oxygen Flow Rate 0 Oxygen Delivery Method Nasal Cannula Oxygen Flow Rate 0 Narrative Exam Narrative: Sleeping, no distress. HEENT is atraumatic no facial droop. Neck supple, midline trachea, normal JVP. Lungs are clear with normal effort. Heart is slightly tachycardic with a 3/6 systolic murmur. Abdomen is soft, non tender. Extremities are free of edema, good pedal and radial pulses. Skin is free of rash or lesions. Joints are not swollen or deformed. Objective Imaging Chest x-ray: Radiologist's impression: Left perihilar airspace opacity, concerning for infection or aspiration. CT scan - abdomen: Radiologist's impression: 1. Partially loculated small to moderate left pleural effusion with possible adjacent masslike consolidation. Additional bilateral pulmonary nodules measuring up to 1.7 cm, concerning for metastatic disease. 2. Additional findings concerning for metastatic disease of unknown primary including right axillary lymph node measuring 6.2 cm, splenic lesion measuring 4.2 cm and prominent mediastinal lymph nodes. 3. Stool ball in the rectum measuring 6.8 cm with a rectal wall thickening and surrounding inflammatory changes concerning for impaction and stercoral colitis. 4. Prostatomegaly. CT scan - chest: Radiologist's impression: Limited evaluation secondary to suboptimal timing of IV contrast bolus. No acute pulmonary embolus to the level of the proximal segmental pulmonary arteries. No evidence for acute right-sided heart strain. Trace right and small left bilateral pleural effusions with moderate atelectasis of the left lower lobe as well as compressive atelectasis of the dependent portions of the bilateral lower lobes. Although no definite focal mass identified. A pulmonary mass within area of left lower lobe consolidation not excluded. Large right axillary adenopathy with multiple scattered bilateral pulmonary nodules suspicious for metastatic disease. There is also mediastinal adenopathy. A definite primary not visualized. Heterogeneous appearance of the osseous structures without definite focal osseous lesions. No pathologic fractures or acute compression fractures identified. Partially imaged upper abdomen with possible periportal adenopathy. Labs 08/18/23 03:50 08/18/23 03:50 Labs: Laboratory Results - last 24 hr 08/17/23 08/17/23 08/17/23 15:46 16:25 18:30 WBC 16.9 H RBC 3.72 L Hgb 7.9 L Hct 25.8 L MCV 69.3 L MCH 21.2 L MCHC 30.6 RDW 16.7 H Plt Count 603 H Neut % (Auto) 82.3 H Lymph % (Auto) 8.4 L [place] % (Auto) 7.2 Eos % (Auto) 1.1 L Baso % (Auto) 1.0 Neut # (Auto) 19076 H Lymph # (Auto) 1400 [place] # (Auto) 1200 H Eos # (Auto) 200 Baso # (Auto) 200 H Platelet Estimate Increased on smear RBC Morphology See below Microcytosis 1+ H Percent Retic PT 15.6 H INR 1.4 H Sodium 136 L Potassium 4.6 Chloride 100 Carbon Dioxide 25 BUN 20 Creatinine 1.03 Estimated GFR > 60 BUN/Creatinine Ratio 19.4 Glucose 153 H Lactate 3.2 H Calcium 8.8 Phosphorus Iron 29 L TIBC 290 % Saturation 10 L Transferrin 222 Total Bilirubin 0.5 AST 34 ALT 36 Alkaline Phosphatase 96 Total Creatine Kinase 22 L Troponin I < 0.012 NT-Pro-B Natriuret Pep Total Protein 7.6 Albumin 3.7 Globulin 3.9 Albumin/Globulin Ratio 0.9 L Vitamin B12 Procalcitonin 0.13 Urine Color Yellow Urine Appearance Clear Urine pH 5.0 Ur Specific [place] 1.020 Urine Protein Trace H Urine Glucose (UA) Negative Urine Ketones Negative Urine Occult Blood 2+ H Urine Nitrate Negative Urine Bilirubin Negative Urine Urobilinogen 1.0 Ur Leukocyte Esterase Negative Urine RBC 5-10/hpf H Urine WBC 1-5/hpf Ur Squamous Epith Cells 1-5 /hpf Urine Bacteria None seen Ur Culture Indicated? Specimen cultured Vol Urine Centrifuged 10ml (spun) Chlamy pneumoniae PCR Not detected Adenovirus (PCR) Not detected B.parapertussis DNA PCR Not detected Coronavirus OC43 (PCR) Not detected Coronavirus HKU1 (PCR) Not detected Coronavirus 229E (PCR) Not detected SARS-CoV-2 (PCR) Not detected Coronavirus NL63 (PCR) Not detected Human Metapneumovir PCR Not detected Influenza Type A (PCR) Not detected Influenza Type B (PCR) Not detected M. pneumoniae (PCR) Not detected Parainfluenza 1 (PCR) Not detected Parainfluenza 2 (PCR) Not detected Parainfluenza 3 (PCR) Not detected Parainfluenza 4 (PCR) Not detected RSV (PCR) Not detected Entero/Rhino (PCR) Not detected Blood Type Antibody Screen 08/17/23 08/18/23 19:20 03:50 WBC 22.6 H RBC 3.64 L Hgb 7.7 L Hct 25.2 L MCV 69.3 L MCH 21.1 L MCHC 30.5 RDW 16.5 H Plt Count 561 H Neut % (Auto) 80.2 H Lymph % (Auto) 10.0 L [place] % (Auto) 8.2 Eos % (Auto) 0.5 L Baso % (Auto) 1.1 Neut # (Auto) 71950 H Lymph # (Auto) 2300 [place] # (Auto) 1900 H Eos # (Auto) 100 Baso # (Auto) 200 H Platelet Estimate Increased on smear RBC Morphology See below Microcytosis 1+ H Percent Retic 1.5 PT INR Sodium 136 L Potassium 4.4 Chloride 103 Carbon Dioxide 23 BUN 17 Creatinine 0.85 Estimated GFR > 60 BUN/Creatinine Ratio 20.0 Glucose 148 H Lactate 2.0 Calcium 8.4 Phosphorus 3.3 Iron TIBC % Saturation Transferrin Total Bilirubin AST ALT Alkaline Phosphatase Total Creatine Kinase Troponin I NT-Pro-B Natriuret Pep 758 H Total Protein Albumin Globulin Albumin/Globulin Ratio Vitamin B12 585 Procalcitonin Urine Color Urine Appearance Urine pH Ur Specific [place] Urine Protein Urine Glucose (UA) Urine Ketones Urine Occult Blood Urine Nitrate Urine Bilirubin Urine Urobilinogen Ur Leukocyte Esterase Urine RBC Urine WBC Ur Squamous Epith Cells Urine Bacteria Ur Culture Indicated? Vol Urine Centrifuged Chlamy pneumoniae PCR Adenovirus (PCR) B.parapertussis DNA PCR Coronavirus OC43 (PCR) Coronavirus HKU1 (PCR) Coronavirus 229E (PCR) SARS-CoV-2 (PCR) Coronavirus NL63 (PCR) Human Metapneumovir PCR Influenza Type A (PCR) Influenza Type B (PCR) M. pneumoniae (PCR) Parainfluenza 1 (PCR) Parainfluenza 2 (PCR) Parainfluenza 3 (PCR) Parainfluenza 4 (PCR) RSV (PCR) Entero/Rhino (PCR) Blood Type AB Positive Antibody Screen Negative Assessment & Plan Assessment & Plan narrative: 1. Aspiration pneumonia noted on the chest x-ray. Present on admission and active. - Continue the cefepime/vancomycin initiated in the emergency room. Patient has allergies to penicillin but tolerated the cefepime. Watch the blood pressure and heart rate closely - Resume the nectar thick liquids as given at the long term. - Consult speech to rule out aspiration 2. Chest pain appears more of a musculoskeletal especially in the left shoulder from trauma history. Does not appear to be cardiac in nature but monitor for now 3. Anemia. No active bleeding. Unclear etiology. Check a stool occult and iron/B12/folate/reticulocyte count for further evaluation 4. Depression resume the home Celexa. Present on admission and stable. 5. Glaucoma resume home latanoprost/timolol. Present on admission and stable. 6 dementia resume the home Seroquel. Present on admission and stable. DVT prophylaxis will be with SCDs. Hold off on the chemoprophylaxis while trending the hemoglobin closely Goals of care reviewed and per records patient is a DNR Time Spent With Patient Time with patient: 30 to 49 minutes with 50% spent counseling/coordinating care Quality VTE Deep Vein Thrombosis/Pulmonary Embolism Present on Admission: No MIPS - Admit I confirm the patient?s Advance Care Plan is present, Code status is documented, Surrogate decision maker is in patient?s record [If Yes, STOP here]: Yes The patient?s Advance Care plan is not present because I confirmed today that the patient does not wish or was not able to name a surrogate decision maker or provide an Advance Care Plan.: Yes [facility] - Meds 'Current medications' to include all prescriptions, [id number] products, herbals, cannabis/cannabidiol products, and vitamin/mineral/dietary (nutritional) supplements. I have utilized all available resources to obtain, update, or review the patient?s current medications. [If Yes, STOP here]: Yes
[2023-08-18 08:00] VITALS: BP 117/56; PULSE 108; RESP 16; TEMP 37; O2SAT 92
[2023-08-18] MEDS: ENOXAPARIN 40 MG/0.4 ML SYRINGE SUBCUT ×2 (09:30→09:31)
[2023-08-18] MEDS: CEFEPIME 1 GM in SODIUM CHLORIDE 0.9% 100 ML IV ×2 (09:31→22:39)
[2023-08-18] MEDS: QUETIAPINE 25 MG TABLET PO (09:36)
--- NOTE | 2023-08-18 09:49 | OT.IPNOTE ---
Clinician approached Serafin for OT evaluation; attempted to wake him but he appeared to be sleeping quite soundly w/ breakfast tray still present in room on bedside table w/ meal covered on plate w/ lid and fruit appearing to be untouched. Thus, recommend re-approaching Serafin at a later time.
--- NOTE | 2023-08-18 10:10 | PT.IIE ---
Current Diagnoses Pneumonia, unspecified organism (08/17/23) Surgical History (Last Reviewed 08/18/23 @ 07:32 by Norris Chow MD) History of cataract removal with insertion of prosthetic lens (03/2010) History of knee replacement (2005) Status post appendectomy (194) Medical History (Last Reviewed 08/18/23 @ 07:32 by Norris Chow MD) Benign prostatic hyperplasia with urinary obstruction (05/30/14) Cervical stenosis of spine Dementia Diverticulosis of large intestine without hemorrhage (06/15/15) Erectile dysfunction Gastroesophageal reflux disease without esophagitis (04/10/17) Hyperlipidemia, mixed Hypertension, essential Incontinence without sensory awareness Malignant melanoma (04/07/14) Nocturia Osteoarthritis of hip (10/21/14) Transient global amnesia Physical Therapy Inpatient Evaluation/Re-Eval M1 PT/OT-IP Prior Functional Status Start: 08/18/23 12:14 Freq: NEEDED Status: Active Protocol: Document 08/18/23 10:10 AB (Rec: 08/18/23 12:48 AB [id number]) Medical Review Prior Functional Status Medical History Reviewed Yes Communication pt is letheragic; spouse in room and stated that pt has not been verbal before but able to say yes or no or sometimes tell if he needs something Mobility and Gait spouse gave pt's PLOF: stated that pt is w/c bound and is a 2 person assist with all mobilities and is non- ambulatory Social History Household Members none Living Arrangements Skilled Nurse Facility Number of Floors (Floors) One Floor Number of Stairs To Enter/Railing? pt lives at [facility] Environment Walk in Shower Home Equipment Shower Seat with Backrest M2 PT-IP Current Condition Start: 08/18/23 12:14 Freq: NEEDED Status: Active Protocol: Document 08/18/23 10:10 AB (Rec: 08/18/23 12:48 AB [id number]) Physical Therapy Current Condition Current Condition Evaluation Date 08/18/23 Treatment Diagnosis PNA; generalized weakness Onset Date 08/17/23 M3 PT-IP Subjective Start: 08/18/23 12:14 Freq: NEEDED Status: Active Protocol: Document 08/18/23 10:10 AB (Rec: 08/18/23 12:48 AB [id number]) Subjective Physical Therapy Visit Type Type Initial Evaluation Visit Start Time 10:10 Visit Stop Time 12:05 Notes pt seen for split visits: 1010 -1020 am and 1130am to 1205 Number of COORDINATE MEASURING MACHINE TECHNICIAN Visits 0 Therapy Pain Assessment Pain When Pain Assessed During Mobility Pain Present Pain Present Pain Reported Location Generalized Scale Used says ouch when moved Pain Management Techniques Modification of Treatment M4 PT-IP Mobility and Gait Start: 08/18/23 12:14 Freq: NEEDED Status: Active Protocol: Document 08/18/23 10:10 AB (Rec: 08/18/23 12:48 AB [id number]) PT-Bed Mobility Assessment Supine to Sit Supine to Sit Total Assistance,2 Person Assistance PT-Transfer Assessment Comments Mobility Comments pt supine in bed and is lethargic. spouse in room and very much involved with pt. obtained PLOF and home set up from spouse. spouse stated that pt has L shoulder bone on bone and hx non healing fx on L arm. also informed that pt was able to stand and pivot transfer with 2 person assist at [facility] and needs assistance with all care . attempted to mobilize pt to see if pt will wake up. completed supine to sit total Ax 2 and max cues. required max A for sitting balance on EOB. pt continues to be lethargic. assisted pt back to supine total A x 2 and positioned pt in bed total A x 2. call light and table placed within reach. informed spouse regarding pt's poor rehab potential and level of alertness at this time limiting PT intervention. informed spouse that pt might need a mechanical lift to transfer when d/c back to [facility] depending on progress. pt also has pending BUSINESS INTEGRATION ANALYST order and spouse wants to know when speech can come. contacted speech therapist and informed spouse. PT-Balance Assessment Sitting Balance and Reactions Static Sitting Balance Ability Poor Dynamic Sitting Balance Ability Poor M5 PT-IP Objective Assessments Start: 08/18/23 12:14 Freq: NEEDED Status: Active Protocol: Document 08/18/23 10:10 AB (Rec: 08/18/23 12:48 AB [id number]) Orientation Orientation/Cognition Level of Alertness Lethargic Language Function Ability Hard of Hearing Safety Awareness Decreased Safety Awareness Strength Comments Strength Comments unable to check due to difficulty with following instructions Muscle Tone Muscle Tone WNL Yes M6 PT-IP Treatment Start: 08/18/23 12:14 Freq: NEEDED Status: Active Protocol: Document 08/18/23 10:10 AB (Rec: 08/18/23 12:48 AB [id number]) Physical Therapy Treatment Education Education Provided Safety M7 PT-IP Assessment and Plan Start: 08/18/23 12:14 Freq: NEEDED Status: Active Protocol: Document 08/18/23 10:10 AB (Rec: 08/18/23 12:48 AB [id number]) PT Summary Assessment and Plan Potential Rehabilitation Potential Poor Status of Condition at Evaluation Evolving Summary Impairments Pain,ROM,Strength,Balance, Coordination,Sensation,Tone, Cognition,Bed Mobility, Transfers,Gait,Activity Tolerance Assessment Summary pt is an 87 y/o M who presented to the ED with c/o chest pain. pt admitted for PNA, sepsis. pt is lethargic and needing total Ax 2 with bed mobility. unable to do transfers at this time. recommending mechanical lift transfers with nursing staff. will continue to assess progress. Goals Bed Mobility Goal Moderate Assistance Transfer Goal Moderate Assistance Days to Meet Goals 10 Frequency of Treatment Frequency Of Treatment Once a Day Treatment Plan Physical Therapy Treatment Plan Bed Mobility Training,Transfer Training,Gait Training, Therapeutic Exercise,Balance Retraining,Discharge Planning, Hot or Cold Pack,Neuromuscular Re-ed,Coordination Retraining ,Manual Therapy Precautions Other Precautions falls Recommendations To Nursing Amount of Assist Needed Mechanical Lift Discharge Recommendations PT Discharge Recommendations Home with 16/01 Assist Available Other Discharge Recommendations back to [facility] Transportation Needs at Discharge Stretcher/Ambulance
[2023-08-18 12:56] LABS: Hematocrit 26.4 % (41-53)
--- NOTE | 2023-08-18 13:40 | OT.IPNOTE ---
Pt reclined in bed on entrance of OT without spouse present during attempted OT eval. Pt was very lethargic, opening his eyes on occasion, but inconsistently and not in response to verbal or tactile cues. OT spoke with pt's nurse who said she hoped pt would be better able to participate after having some more antibiotics. OT to re-attempt eval when pt is better able to participate.
--- NOTE | 2023-08-18 13:41 | ST.IPIE ---
Visit Care Team Role Provider Type Jeremias Caal MD Family Provider Physician Primary Care Provider Specialty: Internal Medicine Address: [address] [place] [address], [address], [address] Email: [email or web address] Jannette Landon MD Emergency Provider Physician Referring Provider Specialty: Emergency Medicine Address: [address] [place] [address], [facility] Email: [email or web address] Kenton Mckeon MD Admit Provider Physician Attending Provider Specialty: Internal Medicine Address: [address] [place] [address], [facility] Fax: Email: Current Diagnoses Pneumonia, unspecified organism (08/17/23) Past Medical History (Last Reviewed 08/18/23 @ 07:32 by Norris Chow MD) Benign prostatic hyperplasia with urinary obstruction (Medical 05/30/14) Cervical stenosis of spine (Medical) MRI August 2020 Dementia (Medical) Diverticulosis of large intestine without hemorrhage (Medical 06/15/15) Erectile dysfunction (Medical) Gastroesophageal reflux disease without esophagitis (Medical 04/10/17) Hyperlipidemia, mixed (Medical) Hypertension, essential (Medical) Incontinence without sensory awareness (Medical) Malignant melanoma (Medical 04/07/14) Nocturia (Medical) Osteoarthritis of hip (Medical 10/21/14) Transient global amnesia (Medical) ST IP Initial Evaluation Report GI ASST Clinical Swallow Evaluation Start: 08/18/23 13:24 Freq: Status: Active Protocol: Document 08/18/23 13:24 MA (Rec: 08/18/23 13:41 MA [id number]) Clinical Swallow Evaluation Session Time Visit Start Time 12:15 Visit Stop Time 12:45 Total Visit Minutes 30 Visit Information Visit Number [address] Norris Chow Reason for Referral aspiration pna Setting Assessment Location Acute Care Visit Type Note Type Initial evaluation Next Note Type Next Note Type Treatment Note Patient Information Identification Type Name,Wristband History Per H&P: 87 years old male with a past medical history of hypertension, advanced dementia, recurrent aspiration pneumonia and other medical issues was brought in from the memory care unit for apparent chest pain. Patient has a history of left shoulder trauma and did complain of chest pain. The nature of chest pain is unclear and patient is not a very good historian due to profound dementia. Most of the history has been obtained from the chart and from caregiver. Currently with the spouse is not at the bedside. Apparently patient has had intermittent blood in the urine and was prescribed Macrobid for possible UTI but that has not been started yet. In the ED noted to have inspiratory crackles at the left base. Virus panel was negative and subsequent labs showed a f WBC count of 6.9 with a hemoglobin of 7.9. The previous hemoglobin noted in the chart was in March 2021 that showed a hemoglobin of 15 .6. No active bleeding per history. Initially noted to be febrile with tachypneic and tachycardic. Chest x-ray was concerning for left-sided pneumonia. There was some concerns for aspiration pneumonia in the past and patient was initiated on IV cefepime/vancomycin in the emergency room and admitted for further evaluation. PMHx significant for: Incontinence without sensory awareness Cervical stenosis of spine Dementia Erectile dysfunction Nocturia Transient global amnesia Gastroesophageal reflux disease without esophagitis ( 04/10/17) Diverticulosis of large intestine without hemorrhage ( 06/15/15) Osteoarthritis of hip () Benign prostatic hyperplasia with urinary obstruction (11/06) Malignant melanoma (04/07/14) Hyperlipidemia, mixed Hypertension, essential Pt had a MBSS completed with the following results: Mild oropharyngeal dysphagia was observed secondary to diminished strength and function of structures, Although diminished, the observations are consistent with normal aging. Penetration in elderly pts is not outside the typical observations. Aspiration was noted once when the pt vocalized in protest. [place] thick liquids and regular texture were safely tolerated. Pt's reflexive cough appears to be affective in clearing airway. Upgrade of liquids from honey thick to nectar thick is recommended. Additionally, a [place] Free Water protocol is recommended to aid in pt hydration and improve overall quality of life. Oral cleanliness immediately prior to small amounts of water is critical in order to reduce oral bacteria entering the airway should aspiration occur . Small amounts of water can be observed into the body if aspirated; therefore proper oral hygiene is critical. The MBSS images and above results were shared and discussed with the pt's caregiver with written recommendations provided. Caregiver indicated she understood and agreed with plan. All questions were answered to her satisfaction. Rehabilitation Potential Poor Patient Appropriate for Therapy No Recommendations Diet Liquids Order Mildly Thick ( IDDSI 2) Diet Order Regular (IDDSI 7) Medication Recommendation As Tolerated Comments Straws ok - No more than 2 consecutive swallows from straw. Aspiration Precautions Recommended Precautions Upright at 90 Degrees,Frequent Rest Periods,Small Bites/Sips ,Chin Tuck Treatment Plan Therapy Strategy Recommendations Sitting Upright (90 deg),Chin Tuck,Double Swallow,Small Bites and Sips Placement Recommendation After Discharge [facility] Pt referred for ST evaluation d/t Pt with possible aspiration PNA. Subjective Observations Pt sitting upright in bed with eyes closed, primarily sleeping. Pt present who was able to answer questions. She reports he was consuming regular solids and nectar thick liquids at the memory care facility he lives at. He has a hx of aspiration PNA. Reported by Patient/Caregiver Other Symptoms History of aspiration or pneumonia Current Diet NPO The IDDSI Framework Protocol: IDDSI.1 Objective Assessment Mental Status Confused,Lethargic, Unresponsive Comment Unable to complete formal oral motor exam d/t Pt with cognitive deficits impacting ability to follow commands as well as Pt sleeping throughout evaluation. ST provided oral care with toothbrush, which he was receptive to, however frequently clenching teeth and trying to bite toothbrush. Pt with mild oral stasis. ST suspects generalized weakness and reduced ROM. Food and Liquid Trials Position During Assessment Upright (90 degrees) Liquids Trialed Mildly Thick (IDDSI 2) Administration Type Tea spoon Oral Impairment Moderately impaired Oral Phase Comments Limited PO trials administered for safety d/t Pt in and out of sleep throughout evaluation and eyes primarily closed with pt opening them for about 2 minutes. Pt presented with about 1 oz of nectar liquid via tsp. Pt brought in a thickened smoothie. Oral phase characterized by good oral acceptance and containment, reduced oral cavity opening, prolonged bolus manipulation, extended ap transport. ST attempted to provide a tsp of pudding and a piece of a ronni cracker, however Pt would not open mouth with him eventually falling asleep. Pharyngeal Impairment Moderately impaired Pharyngeal Phase Comments For nectar thick liquids via tsp Pt exhibited suspected delay in swallow, double swallow, no overt s/s of aspiration. Fatigue/Endurance Severe fatigue The IDDSI Framework Protocol: IDDSI.1 Findings Swallowing Function Oropharyngeal phase dysphagia Severity of Swallow Impairment Moderately-severely impaired Contributing Factors to Swallow Reduced alertness or attention Impairment ,Difficulty following directions Prognosis Fair Based on Cognitive status,History of aspiration/aspiration pneumonia Impact on Safety and Functioning Risk for aspiration,Risk for inadequate nutrition/hydration Recommendations Instrumental Assessment No Swallowing Treatment Yes Frequency Daily while inpatient Recommended Solids Pureed (IDDSI 4) Recommended Liquids Mildly Thick (IDDSI 2) Other Recommendations ST recommends IDDSI 4/IDDSI 2. ST communicated recommendations with Pt , nursing and MD. ST recommends pureed solids at this time, however communicated recommendation for MD to upgrade Pt diet over the weekend if Pt has increased alertness and improvements in medical status d/t Pt just having had a MBS two days ago with recommendation for regular solids and nectar thick liquids, however for MD to upgrade based on their discretion. ST recommends 100% feeding assistance and supervision and for Pt to only be fed when awake and alert sitting upright [address] communicated with Pt to ensure he is receiving adequate oral care at facility he resides in before and after meals and importance of a clean mouth to prevent aspiration PNA. Pt verbalized understanding. ST also communicated recommendation for no straws at this time as well as additional safe swallowing strategies, such as ensuring Pt is upright for meals and at least 30 minutes after meals. Safety Precautions/Swallowing Supervision needed for all Recommendations meals,Feed only when alert, Remain upright (90 degrees) during all oral intake,Upright position at least 30 minutes after meals,Small bites and sips when eating,Slow rate; swallow between bites,No straw ,Alternate liquids and solids, 1 to 1 feeding assistance, Strict oral care after intake Medication Recommendations As Tolerated Education Patient/Caregiver Education Described results of evaluation,Family/caregivers expressed understanding of evaluation Goals Short-term Goals STG 1: Patient will tolerate therapeutic PO trials of IDDSI 4/5/6/7 with no clinical s/s of dysphagia 100% of the time in order to consume least restrictive diet. STG 2: Patient will tolerate nectar thick liquids with no clinical s/s of aspiration 100 % of the time in order to consume least restrictive diet . Long-term Goals LTG: Patient will tolerate safest and most efficient diet with no clinical s/s of aspiration or dysphagia 100% of the time in order to consume least restrictive diet .
[2023-08-18] MEDS: CITALOPRAM 10 MG TABLET PO (14:27)
[2023-08-18] MEDS: metroNIDAZOLE 500 MG/100 ML PIGGYBACK 100 MG IV ×2 (14:27→23:20)
[2023-08-18 16:00] VITALS: BP 150/56; PULSE 102; RESP 24; TEMP 37.6; O2SAT 94
[2023-08-18] MEDS: HYDROCODONE/ACET 5/325 TABLET 1 TAB PO (16:51)
[2023-08-18] MEDS: SODIUM CHLORIDE 0.9% 1,000 ML 84 ML IV (17:38)
[2023-08-18 21:11] VITALS: BP 112/60; PULSE 108; RESP 24; TEMP 36.4; O2SAT 94
[2023-08-18] MEDS: VANCOMYCIN 1,500 MG/300 ML PIGGYBACK 166.667 MG IV (21:57)
[2023-08-18] MEDS: LATANOPROST 0.005% OPHTH 2.5 ML 1 DROPS EYE-LEFT (22:05)
[2023-08-18 23:02] LABS: Acinetobacter calcoa-baumannii Not Detected (Not Detect); Bacteroides fragilis Not Detected (Not Detect); Candida albicans Not Detected (Not Detect); Candida auris Not Detected (Not Detect); Candida glabrata Not Detected (Not Detect); Candida krusei Not Detected (Not Detect); Candida parapsilosis Not Detected (Not Detect); Candida tropicalis Not Detected (Not Detect); Cryptococcus neoformans/gatti Not Detected (Not Detect); Enterobacter cloacae complex Not Detected (Not Detect); Enterobacterales Not Detected (Not Detect); Enterococcus faecalis Not Detected (Not Detect); Enterococcus faecium Not Detected (Not Detect); Haemophilus influenzae Not Detected (Not Detect); Klebsiella aerogenes Not Detected (Not Detect); Listeria monocytogenes Not Detected (Not Detect); Neisseria meningitidis Not Detected (Not Detect); Proteus species Not Detected (Not Detect); Pseudomonas aeruginosa Not Detected (Not Detect); Salmonella species Not Detected (Not Detect); Serratia marcescens Not Detected (Not Detect); Staphylococcus epidermidis Not Detected (Not Detect); Staphylococcus lugdunensis Not Detected (Not Detect); Staphylococcus species Detected (Not Detect); Stenotrophomonas maltophilia Not Detected (Not Detect); Streptococcus agalactiae (Gr B Not Detected (Not Detect); Streptococcus pneumonia Not Detected (Not Detect); Streptococcus pyogenes (Gr A) Not Detected (Not Detect); Streptococcus species Not Detected (Not Detect)
[2023-08-19] MEDS: metroNIDAZOLE 500 MG/100 ML PIGGYBACK 100 MG IV ×3 (04:34→20:49)
[2023-08-19 04:45] VITALS: BP 131/68; PULSE 101; RESP 16; TEMP 36.4; O2SAT 91
[2023-08-19] MEDS: SODIUM CHLORIDE 0.9% 1,000 ML 84 ML IV ×2 (05:38→18:03)
--- NOTE | 2023-08-19 07:24 | PM.PN.1 ---
Subjective Subjective Interval history: Not really responsive. He was satting 88% with his nasal cannula shifted to the side of his nose. Readjusted this in turn him from 2-3 L. He appears comfortable. Exam Vital Signs (past 8 hours): - 08/19/23 04:45 Temperature 97.5 F L Pulse Rate 101 H Respiratory Rate 16 Blood Pressure 131/68 Pulse Oximetry 91 Oxygen Flow Rate 2 Oxygen Delivery Method Nasal Cannula Oxygen Flow Rate 2 Narrative Exam Narrative: Not really waking, no distress. Lungs are relatively clear with normal rate and effort. He is on 3 L. Heart is regular, no murmur. Abdomen is soft, non tender. Extremities are free of edema. Objective Labs 08/18/23 12:39 08/18/23 03:50 Labs: Laboratory Results - last 24 hr 08/18/23 08/18/23 12:39 21:48 Hgb 8.0 L Hct 26.4 L A.calcoaceticus-baumannii cmplx PCR Not detected Bacteroides fragilis Not detected Sima albicans (PCR) Not detected Sima auris (PCR) Not detected C. glabrata (PCR) Not detected C. krusei (PCR) Not detected C. parapsilosis (PCR) Not detected C. tropicalis (PCR) Not detected C. neoform/gattii (PCR) Not detected Enterobacterales (PCR) Not detected E. cloacae complex PCR Not detected Enterococc faecalis PCR Not detected Enterococc faecium PCR Not detected E. coli (PCR) Not detected H. influenzae (PCR) Not detected Klebsiella aerogenes (PCR) Not detected Klebsiella oxytoca PCR Not detected Klebsiella pneumoniae Not detected List. monocytogenes PCR Not detected N. meningitidis (PCR) Not detected Proteus species (PCR) Not detected Salmonella spp. (PCR) Not detected Serratia marcescens PCR Not detected Staphylococcus sp PCR Detected Staph aureus (PCR) Not detected mecA/C & MREJ Resist Gene Not applicable mecA/C-Methicil Resis Gene Not applicable mcr-1 Colistin Res Gene PCR Not applicable Staph epidermidis (PCR) Not detected Staph lugdunensis PCR Not detected S. maltophilia (PCR) Not detected Streptococcus sp PCR Not detected Group A Strep (PCR) Not detected Strep agalactiae (PCR) Not detected Strep pneumoniae (PCR) Not detected P. aeruginosa (PCR) Not detected Xenia/B-Vanco Res Genes Not applicable blaIMP Car res Gene PCR Not applicable KPC-Carbap Res Gene PCR Not applicable blaNDM Car Res Gene PCR Not applicable OXA-48 Carbapenem Resis Gene (PCR) Not applicable blaVIM Car Res Gene PCR Not applicable CTX-M Gene Resistance (PCR) Not applicable [facility] Medical History Incontinence without sensory awareness Cervical stenosis of spine Dementia Erectile dysfunction Nocturia Transient global amnesia Gastroesophageal reflux disease without esophagitis (04/10/17) Diverticulosis of large intestine without hemorrhage (06/15/15) Osteoarthritis of hip (10/21/14) Benign prostatic hyperplasia with urinary obstruction (05/30/14) Malignant melanoma (04/07/14) Hyperlipidemia, mixed Hypertension, essential Surgical History History of cataract removal with insertion of prosthetic lens (03/2010) History of knee replacement (2005) Status post appendectomy (1946) Family History Father Family history of diabetes mellitus Family history of Parkinson's disease Mother Family history of diabetes mellitus CVD (cardiovascular disease) Brother No problems noted. 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 travel history: over 6 months ago Smoking Status: Former smoker Tobacco: How many years used: 20 Smokeless tobacco user: other quit status: quit date established second hand exposure: No alcohol intake: current substance use type: does not use Assessment & Plan Assessment & Plan narrative: 1. Aspiration pneumonia noted on the chest x-ray. Present on admission and active. - Continue the cefepime/vancomycin initiated in the emergency room. Patient has allergies to penicillin but tolerated the cefepime. Watch the blood pressure and heart rate closely - Resume the nectar thick liquids as given at the [facility]. -spoke with significant other at length yesterday evening. If the patient decompensates despite treatment with antibiotics and begins to suffer she would advocate for comfort care measures. She is discussing with the patient's daughter who is in [place] and is a nurse. Patient's daughter is also power of pharmacist in charge owner for healthcare. 2. Chest pain. Does not appear to be cardiac in nature but monitor for now 3. Anemia. No active bleeding. Unclear etiology. Check a stool occult and iron/B12/folate/reticulocyte count for further evaluation 4. Depression resume the home Celexa. Present on admission and stable. 5. Glaucoma resume home latanoprost/timolol. Present on admission and stable. 6. Dementia resume the home Seroquel. Present on admission and stable. DVT prophylaxis will be with SCDs. Hold off on the chemoprophylaxis while trending the hemoglobin closely DNR. Time Spent With Patient Time with patient: 30 to 49 minutes with 50% spent counseling/coordinating care Quality VTE Deep Vein Thrombosis/Pulmonary Embolism Present on Admission: No
--- NOTE | 2023-08-19 08:20 | CM.DANOTE ---
Discharge Planning/Care Management Initial DCP Assessment Visit Reviewed EMR and team rounds for pt's medical status and updates. COMPONENT ASSEMBLER went to meet pt/ at bedside, pt was sleeping and his was not present at the time. Pt was observed to be resting comfortably. Payor: Medicare PCP: Dr. Caal Pt is a 87 year-old M with a PMH of advanced dementai, hypertension, recurrent aspiration pneumonia among other comorbidities was brought to the ED from [facility] after pt had complained of chest pain. CT imaging showed left-sided pneumonia, presumed to be aspiration. He was also shown to have a left-sided pleural effusion and severe anemia. He was started on IV ABO's in the ED and admitted to the floor for continued eval and tx. Plan will be for him to return to [facility] once he's medically cleared for d/c. DCP will continue to follow and assist with any further identified needs/resources. CM Discharge Assessment Start: 08/19/23 08:17 Freq: Status: Active Protocol: Document 08/19/23 08:18 DPL (Rec: 08/19/23 08:20 DPL [id number]) Discharge Planning Assessment Assigned Marine Diesel Mechanic MODESTA Skaggs Advance Directives? Yes Advance Directives on File Yes History Provided By Medical Record Expected Length of Stay 2 Has Patient been admitted in last 30 No days? Prior Living Arrangements Skilled Nurse Facility Comment [facility] Household Members none Type of transporation used prior to Relies on Others admit Facility Name Admitted From: [facility] Willing to Return to Facility? Yes: [facility] Independent with ADL's No: Pt is a 2-person assist, non-ambulatory Is patient alert and oriented? No Needs Assistance With Bathing,Grooming,Meal Prep, Toileting,Managing Medications ,Home Chores / Shopping Caregiver for Another No DME Already Rented / Owned Bath Bench,Hospital Bed, Wheelchair,Elevated Toilet Seat Patient/Family Preference Assisted Facility Barriers to Discharge No Discharge Plan Left AMA Referrals Initiated None needed Inpatient Status as of 08/17/23 Whiteboard Updated in Patient Room with Yes name and ext. # of Marine Diesel Mechanic Review Status In Process Please Provide Date Initial DC 08/19/23 Assessment Was Performed
[2023-08-19 09:00] VITALS: BP 120/66; PULSE 104; RESP 18; TEMP 37.4; O2SAT 92
[2023-08-19] MEDS: CEFEPIME 1 GM in SODIUM CHLORIDE 0.9% 100 ML IV ×2 (09:35→19:47)
[2023-08-19] MEDS: QUETIAPINE 25 MG TABLET PO (09:46)
[2023-08-19] MEDS: CITALOPRAM 10 MG TABLET PO (09:46)
--- NOTE | 2023-08-19 10:14 | ST.IPDYTX ---
Visit Care Team Role Provider Type Jeremias Caal MD Family Provider Physician Primary Care Provider Specialty: Internal Medicine Address: [address] [place] [address], [address], [place], [address] Email: [email or web address] Jannette Landon MD Emergency Provider Physician Referring Provider Specialty: Emergency Medicine Address: [address] [place] [address], [address] Email: [email or web address] Kenton Mckeon MD Admit Provider Physician Attending Provider Specialty: Internal Medicine Address: [address] [place] [address], [address] Fax: Email: HUMAN DEVELOPMENT PROFESSOR Dysphagia Treatment HUMAN DEVELOPMENT PROFESSOR Dysphagia Treatment Start: 08/19/23 09:39 Freq: Status: Active Protocol: Document 08/19/23 09:39 MG (Rec: 08/19/23 09:46 MG [id number]) Dysphagia Treatment Session Time Visit Start Time 09:15 Visit Stop Time 09:35 Total Visit Minutes 20 Visit Information Visit Number 2 Setting Assessment Location Acute Care Visit Type Note Type Treatment Note Next Note Type Next Note Type Treatment Note Patient Information Identification Type Name,ID Wristband Subjective Observations Pt was resting in bed inclined when HUMAN DEVELOPMENT PROFESSOR entered the room. Pt 's partner Marycruz was present for the treatment session. Pt was very fatigued and difficult to arouse. Of note, the pt's partner reported that he may discharge with hospice . Treatment Liquids Trialed Mildly Thick (IDDSI 2) Solids Trialed Purred (IDDSI 4) Oral Strategies Upright at 90 degrees,Dementia Strategies Pharyngeal Strategies Sitting Upright (90 deg),Small Bites and Sips Treatment Activities Pt took small bites of applesauce and sips of thickened orange juice from partner. Partner reported he uses straws and requested to trial them with HUMAN DEVELOPMENT PROFESSOR present. HUMAN DEVELOPMENT PROFESSOR recommended including straws (small ones, not from the hospital cup) but pinching so less liquid entered the oral cavity. The IDDSI Framework Protocol: IDDSI.1 Assessment Patient Response to Treatment Fair Rehab Potential Fair Assessment of Improvement Pt was hard to arouse this morning and engaged very little in therapeutic trials. Pt's partner appears aware of recommendations and in agreement with them at this time. No concerns or questions prior to HUMAN DEVELOPMENT PROFESSOR exiting the room . Recommendations Recommendations Continue Current Diet Liquids Order Mildly Thick (IDDSI 2) Diet Order Pureed (IDDSI 4) Medication Recommendations As Tolerated,Whole in Carrier, Crushed in Carrier Comments Straws ok - No more than 2 consecutive swallows from straw and straw pinch. Additional Dietary Needs Controlled Sips,1:1 Assistance ,Encourage to Self-Feed Aspiration Precautions Recommended Precautions Upright at 90 Degrees,Small Bites/Sips,Check for Pocketing Treatment Plan Placement Recommendation after Discharge Shift Supervisor [facility],Home with Hospice Appropriate for Continued Therapy Yes Therapy Recommendations STG 1: Patient will tolerate therapeutic PO trials of IDDSI 4/5/6/7 with no clinical s/s of dysphagia 100% of the time in order to consume least restrictive diet. STG 2: Patient will tolerate nectar thick liquids with no clinical s/s of aspiration 100 % of the time in order to consume least restrictive diet Dysphagia Goals LTG: Patient will tolerate safest and most efficient diet with no clinical s/s of aspiration or dysphagia 100% of the time in order to consume least restrictive diet
--- NOTE | 2023-08-19 11:38 | CM.DPC ---
SNOW Short. Spoke with dtr/DPOA-HCMee. Discussed pt's declining condition, and that his Life Partner, Marycruz, would like to initiate hospice services at d/c for when he returns to [facility]. She is completely supportive of this idea, and will plan to fly out with some of her other adult children early next week to support Marycruz and be with pt, as he appears at end of life. [facility] called them and requested that they call Mee for info and plan. Will monitor closely. Marycruz and pt have been together for about 4-years, she is his romantic partner.
--- NOTE | 2023-08-19 12:52 | PT.IPTN ---
Current Diagnoses Pneumonia, unspecified organism (08/17/23) Physical Therapy Treatment Note M2 PT-IP Current Condition Start: 08/18/23 12:14 Freq: NEEDED Status: Active Protocol: Document 08/18/23 10:10 AB (Rec: 08/18/23 12:48 AB [id number]) Physical Therapy Current Condition Current Condition Evaluation Date 08/18/23 Treatment Diagnosis PNA; generalized weakness Onset Date 08/17/23 M3 PT-IP Subjective Start: 08/18/23 12:14 Freq: NEEDED Status: Active Protocol: Document 08/19/23 12:51 AB (Rec: 08/19/23 12:52 AB [id number]) Subjective Physical Therapy Visit Type Type Administrative Note Notes spouse stated that plan is for pt to go back to [facility] memory care and go on hospice care. confirmed with dc project construction assistant manager and hospitalist. agreed to d/c pt from PT. M7 PT-IP Assessment and Plan Start: 08/18/23 12:14 Freq: NEEDED Status: Active Protocol: Document 08/19/23 12:51 AB (Rec: 08/19/23 12:52 AB [id number]) PT Summary Assessment and Plan Frequency of Treatment Frequency Of Treatment Discharge
[2023-08-19 13:15] VITALS: O2SAT 93
[2023-08-19 16:00] VITALS: BP 129/57; PULSE 103; RESP 16; TEMP 37.3; O2SAT 94
[2023-08-19 19:39] VITALS: PULSE 94; O2SAT 99
[2023-08-19 20:34] VITALS: BP 121/68; PULSE 103; RESP 18; TEMP 37; O2SAT 93
[2023-08-19] MEDS: BISACODYL 5 MG TABLET PO (20:48)
[2023-08-19] MEDS: LATANOPROST 0.005% OPHTH 2.5 ML 1 DROPS EYE-LEFT (20:48)
[2023-08-19] MEDS: VANCOMYCIN 1,500 MG/300 ML PIGGYBACK 166.6 MG IV (20:49)
[2023-08-20 04:25] VITALS: BP 129/72; PULSE 107; RESP 18; TEMP 36.6; O2SAT 95
[2023-08-20] MEDS: metroNIDAZOLE 500 MG/100 ML PIGGYBACK 100 MG IV ×2 (05:15→14:24)
--- NOTE | 2023-08-20 07:24 | PM.PN.1 ---
Subjective Subjective Interval history: This patient presented with aspiration pneumonia from a memory care center. 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 His significant other is not his power of tax associate attorney for healthcare. That his his daughter, a nurse who lives in [place]. The patient has been hypoxemic and not conscious since admission. Have advocated for consideration of hospice, family is considering. I spoke with grandson per their request yesterday. He has a graduate medical student. He supports this idea and is working with his mother. In the meantime the patient is receiving antibiotics and oxygen, if he decompensates he will likely go to a comfort care. If he stabilizes and improves he will likely discharge back to [facility] with hospice. Neg resp 4 PCR 08/17. S; not obtainable, patient is more awake today and opening eyes but not speaking intelligibly. Exam Vital Signs (past 8 hours): - 08/20/23 04:25 Temperature 97.8 F Pulse Rate 107 H Respiratory Rate 18 Blood Pressure 129/72 Pulse Oximetry 95 Oxygen Flow Rate 2 Fraction of Inspired Oxygen 32 SaO2/FiO2 Ratio 309 Oxygen Delivery Method Nasal Cannula Oxygen Flow Rate 2 Narrative Exam Narrative: Awake with eyes open but not speaking. No apparent distress. 3 L O2. Lungs are notable for some expiratory wheezing, normal rate and effort. Heart is regular, no murmur gallop or rub. Abdomen is soft, non distended. Extremities are free of edema. Objective Labs 08/18/23 12:39 08/18/23 03:50 [facility] Medical History Incontinence without sensory awareness Cervical stenosis of spine Dementia Erectile dysfunction Nocturia Transient global amnesia Gastroesophageal reflux disease without esophagitis (04/10/17) Diverticulosis of large intestine without hemorrhage (06/15/15) Osteoarthritis of hip (10/21/14) Benign prostatic hyperplasia with urinary obstruction (05/30/14) Malignant melanoma (04/07/14) Hyperlipidemia, mixed Hypertension, essential Surgical History History of cataract removal with insertion of prosthetic lens (03/2010) History of knee replacement (2005) Status post appendectomy (1946) Family History Father Family history of diabetes mellitus Family history of Parkinson's disease Mother Family history of diabetes mellitus CVD (cardiovascular disease) Brother No problems noted. 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 travel history: over 6 months ago Smoking Status: Former smoker Tobacco: How many years used: 20 Smokeless tobacco user: other quit status: quit date established second hand exposure: No alcohol intake: current substance use type: does not use Assessment & Plan Assessment & Plan narrative: 1. Aspiration pneumonia noted on the chest x-ray. Present on admission and active. - Continue the cefepime/vancomycin initiated in the emergency room. Patient has allergies to penicillin but tolerated the cefepime. Watch the blood pressure and heart rate closely - Resume the nectar thick liquids as given at the group home. - continue antibiotics, likely comfort if he decompensates. Likely back to memory Care with hospice if he stabilizes and improves. Family will probably want to complete an oral course of antibiotics for this infection. 2. Chest pain. Does not appear to be cardiac. -no further workup. 3. Anemia. Present on admission and stable. - No active bleeding. Unclear etiology. Check a stool occult and iron/B12/folate/reticulocyte count for further evaluation 4. Depression, Present on admission and stable. - resume the home Celexa. 5. Glaucoma, Present on admission and stable. resume home latanoprost/timolol. 6. Dementia, Present on admission and stable. - resume the home Seroquel. 7. Poor p.o. intake, present on admission and active. -is a modified diet, we will also change his IV fluids to D5 1/2 normal saline as of today. DVT prophylaxis will be with SCDs. Hold off on the chemoprophylaxis while trending the hemoglobin closely Time Spent With Patient Time with patient: 30 to 49 minutes with 50% spent counseling/coordinating care Quality VTE Deep Vein Thrombosis/Pulmonary Embolism Present on Admission: No
[2023-08-20 08:00] VITALS: BP 135/65; PULSE 97; RESP 16; TEMP 36.6; O2SAT 94
[2023-08-20] MEDS: CEFEPIME 1 GM in SODIUM CHLORIDE 0.9% 100 ML IV ×2 (09:10→21:06)
[2023-08-20] MEDS: QUETIAPINE 25 MG TABLET PO (09:12)
[2023-08-20] MEDS: CITALOPRAM 10 MG TABLET PO (09:12)
[2023-08-20] MEDS: ENOXAPARIN 40 MG/0.4 ML SYRINGE SUBCUT (09:19)
--- NOTE | 2023-08-20 10:38 | CM.DPC ---
DCP Cont: Notes from BUSINESS OPERATIONS CONSULTANT, Sharifa, mentioned that a [facility] with the plan to return to [facility] with hospice services. Patient is still on oxygen, and hospitalist anticipates the possibility of discharge tomorrow. Called [facility] and spoke to Gloria. Stated that they have referral, and hospice will open on Monday between 10:00-11:00. Equipment has not yet been delivered, for it was the weekend, but will need oxygen, most likely a hospital bed. Debbie had already left a message with their director, Jacqueline, at [facility]. P: DCP to continue to follow. Plan is to return to [facility] with hospice services, it is currently unclear if he will need BLS transfer at this time, facility most likely will not accept until equipment is delivered, will need to follow up with Jacqueline at [facility] tomorrow. Dina Rodgers RN/Nutritional Services Director
[2023-08-20] MEDS: DEXTROSE 5%-0.45% NS 1,000 ML 84 ML IV (11:17)
[2023-08-20 15:46] VITALS: BP 146/73; PULSE 101; RESP 22; TEMP 37; O2SAT 94
[2023-08-20 20:30] VITALS: BP 178/89; PULSE 127; RESP 24; TEMP 37.2; O2SAT 95
[2023-08-20 21:02] VITALS: PULSE 120; RESP 26; O2SAT 92
[2023-08-20] MEDS: LATANOPROST 0.005% OPHTH 2.5 ML 1 DROPS EYE-LEFT (21:07)
[2023-08-20 21:39] LABS: Vancomycin Trough 8.3 ug/mL (10-20)
[2023-08-20] MEDS: VANCOMYCIN TROUGH 1 REQUEST MISC (21:54)
[2023-08-20] MEDS: ALBUTEROL 2.5 MG/3 ML NEB (ADULT) INH (21:56)
[2023-08-20] MEDS: VANCOMYCIN 1,500 MG/300 ML PIGGYBACK 166.6 MG IV (21:58)
[2023-08-21] VITALS (9 sets, daily range): BP systolic 124–157; BP diastolic 57–75; PULSE 95–114; RESP 18–44; TEMP 35.9–37.2; O2SAT 90–97
[2023-08-21] MEDS: metroNIDAZOLE 500 MG/100 ML PIGGYBACK 100 MG IV ×3 (01:38→17:27)
[2023-08-21] MEDS: VANCOMYCIN PEAK 1 REQUEST MISC (02:35)
[2023-08-21] MEDS: DEXTROSE 5%-0.45% NS 1,000 ML 84 ML IV (02:42)
[2023-08-21 03:33] LABS: Vancomycin Peak 20.2 ug/mL (20-40)
[2023-08-21 07:49] LABS: Estimated Glomerular Filt Rate > 60 mL/min (>60)
[2023-08-21] MEDS: CEFEPIME 1 GM in SODIUM CHLORIDE 0.9% 100 ML IV ×2 (08:51→20:06)
[2023-08-21] MEDS: QUETIAPINE 25 MG TABLET PO (08:51)
[2023-08-21] MEDS: ENOXAPARIN 40 MG/0.4 ML SYRINGE SUBCUT (08:51)
[2023-08-21] MEDS: CITALOPRAM 10 MG TABLET PO (08:52)
--- NOTE | 2023-08-21 09:01 | CM.DPC ---
DCP Cont. Reviewed EMR and team rounds for status updates. Plan is for pt to d/c back to [facility] tomorrow, [facility]11:00am. Pt will need to d/c early in time for this BLS transport need. Called and left a message for Jacqueline at [facility] re: pt will need O2, mostly at night with PRN during the day. Called [facility] and confirmed plan for tomorrow. Completed the BLS form except for physician signature. Follow closely in the am.
[2023-08-21] MEDS: VANCOMYCIN 1,000 MG/200 ML PIGGYBACK 200 MG IV ×2 (09:43→22:06)
--- NOTE | 2023-08-21 10:22 | OT.IPNOTE ---
OT eval and treat order recieved. Pt is planned for comfort care. Discussed in rounds will discharge the order per MD.
--- NOTE | 2023-08-21 11:05 | SLP.IPNOTE ---
Per hospitalist (Dr. Damon), okay to d/c speech orders as pt is pursuing comfort care.
[2023-08-21] MEDS: ALBUTEROL 2.5 MG/3 ML NEB (ADULT) INH ×2 (13:52→14:58)
--- NOTE | 2023-08-21 14:02 | PC.NURSE ---
pt on 2L 96%, he started coughing a lot then became more wheezy. called RT for treatment
--- NOTE | 2023-08-21 15:48 | PC.NURSE ---
pt's RR is 40 94% on 2L. notified provider. pt has frequent frown. seemed to be in pain but unable to swallow meds. provider aware.
[2023-08-21] MEDS: MORPHINE 2 MG/ML INJ 1 MG IV (15:50)
--- NOTE | 2023-08-21 16:58 | P.PN_ITS ---
Subjective Subjective Interval history: This patient presented with aspiration pneumonia from a memory care center. 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 His significant other is not his power of patent prosecution attorney for healthcare. That his his daughter, a nurse who lives in [place]. She is coordinating today, but feels a bit overwhelmed. After some goals of care discussion, primary goal is comfort but want to remain on antibiotics for this time. S; not obtainable, patient appears more uncomfortable today, slight tachypnea. Exam Vital Signs (past 8 hours): - 08/21/23 13:52 Pulse Rate 114 H Respiratory Rate 36 H Oxygen Delivery Method Nasal Cannula Oxygen Flow Rate 2 Fraction of Inspired Oxygen 28 Fraction of Inspired Oxygen 28 SaO2/FiO2 Ratio 309 Oxygen Delivery Method Nasal Cannula Oxygen Flow Rate 2 Narrative Exam Narrative: Occasional awakening but not speaking, falls asleep easily. No apparent distress. 2 L O2. Lungs are notable for some expiratory wheezing, normal rate and effort. Heart is regular, no murmur gallop or rub. Abdomen is soft, non distended. Extremities are free of edema. Objective Labs 08/18/23 12:39 08/21/23 07:15 Labs: Laboratory Results - last 24 hr 08/20/23 08/20/23 08/21/23 02:35 20:35 07:15 Creatinine 0.61 L Estimated GFR > 60 Vancomycin Peak 20.2 Vancomycin Trough 8.3 L PFSH Medical History Incontinence without sensory awareness Cervical stenosis of spine Dementia Erectile dysfunction Nocturia Transient global amnesia Gastroesophageal reflux disease without esophagitis (04/10/17) Diverticulosis of large intestine without hemorrhage (06/15/15) Osteoarthritis of hip (10/21/14) Benign prostatic hyperplasia with urinary obstruction (05/30/14) Malignant melanoma (04/07/14) Hyperlipidemia, mixed Hypertension, essential Surgical History History of cataract removal with insertion of prosthetic lens (03/2010) History of knee replacement (2005) Status post appendectomy (1946) Family History Father Family history of diabetes mellitus Family history of Parkinson's disease Mother Family history of diabetes mellitus CVD (cardiovascular disease) Brother No problems noted. 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 travel history: over 6 months ago Smoking Status: Former smoker Tobacco: How many years used: 20 Smokeless tobacco user: other quit status: quit date established second hand exposure: No alcohol intake: current substance use type: does not use Assessment & Plan Assessment & Plan narrative: 1. Aspiration pneumonia noted on the chest x-ray. Present on admission and active. - Continue the cefepime/vancomycin initiated in the emergency room. Patient has allergies to penicillin but tolerated the cefepime. Watch the blood pressure and heart rate closely - Resume the nectar thick liquids as given at the [facility]. - continue antibiotics, likely comfort if he decompensates. Likely back to memory Care with hospice if he stabilizes and improves. Family may discontinue antibiotics if no improvement. 2. Chest pain. Does not appear to be cardiac. -no further workup. 3. Anemia. Present on admission and stable. - No active bleeding. Unclear etiology. Check a stool occult and iron/B12/folate/reticulocyte count for further evaluation 4. Depression, Present on admission and stable. - resume the home Celexa. 5. Glaucoma, Present on admission and stable. resume home latanoprost/timolol. 6. Dementia, Present on admission and stable. - resume the home Seroquel. 7. Poor p.o. intake, present on admission and active. -is a modified diet, we will also change his IV fluids to D5 1/2 normal saline as of today. DVT prophylaxis will be with SCDs. Hold off on the chemoprophylaxis while trending the hemoglobin closely Code: DNR, surrogate is patient's daughter / DPOA. May return to [facility] on hospice vs continue treatments in the hospital with limited interventions of IV antibiotics. Will depend on progress. Quality VTE Deep Vein Thrombosis/Pulmonary Embolism Present on Admission: No
[2023-08-21] MEDS: SCOPOLAMINE 1 PATCH TOP (17:26)
[2023-08-21] MEDS: LATANOPROST 0.005% OPHTH 2.5 ML 1 DROPS EYE-LEFT (20:06)
[2023-08-21 21:09] LABS: Folate, RBC 1067 ng/mL (>498); Hematocrit 23.6 % (37.5-51.0); Hemolysate 251.9 ng/mL (Not Estab.)
[2023-08-22] MEDS: metroNIDAZOLE 500 MG/100 ML PIGGYBACK 100 MG IV ×2 (02:13→09:12)
[2023-08-22] MEDS: CEFEPIME 1 GM in SODIUM CHLORIDE 0.9% 100 ML IV (07:44)
--- NOTE | 2023-08-22 08:22 | PM.DS.1 ---
History of Present Illness History of Present Illness Date Patient Seen: 08/22/23 Time Patient Seen: 08:22 Chief complaint: Chest pain Narrative: From Night Doctor: 87 years old male with a past medical history of hypertension, advanced dementia, recurrent aspiration pneumonia and other medical issues was brought in from the memory care unit for apparent chest pain. Patient has a history of left shoulder trauma and did complain of chest pain. The nature of chest pain is unclear and patient is not a very good historian due to profound dementia. Most of the history has been obtained from the chart and from caregiver. Currently with the spouse is not at the bedside. Apparently patient has had intermittent blood in the urine and was prescribed Macrobid for possible UTI but that has not been started yet. In the ED noted to have inspiratory crackles at the left base. Virus panel was negative and subsequent labs showed a f WBC count of 6.9 with a hemoglobin of 7.9. The previous hemoglobin noted in the chart was in March 2021 that showed a hemoglobin of 15.6. No active bleeding per history. Initially noted to be febrile with tachypneic and tachycardic. Chest x-ray was concerning for left-sided pneumonia. There was some concerns for aspiration pneumonia in the past and patient was initiated on IV cefepime/vancomycin in the emergency room and admitted for further evaluation. Additional history: Patient is sleeping comfortably, history is obtained from . He has been at a memory care unit. He is mostly sedentary. Developed chest pain yesterday which prompted a visit to the ED where he was found to have a fever and pneumonia. He has a history of recurrent aspiration. A modified barium 2 days ago suggested that he should be on nectar thick liquids, bolt upright and small amounts of food at a time. His was concerned about a possible urinary tract infection due to transient hematuria several days ago. A Reed catheter is in place with clear urine. A urine will be sent. Discharge Providers Provider Date of admission: 08/17/23 22:27 Discharge Date: 08/30/23 Primary care physician: Jeremias Caal MD Consults: 08/18/23 00:16 Consult to Occupational Therapy Evaluate & Treat Comment: Physician Instructions: Evaluate and treat Consult to Physical Therapy Evaluate & Treat Comment: Physician Instructions: Evaluate and Treat 08/18/23 10:30 Consult to Speech Therapy Evaluate & Treat Comment: Physician Instructions: Evaluate and treat 08/21/23 10:24 Consult to Occupational Therapy Evaluate & Treat Comment: Physician Instructions: Evaluate and treat Discharge provider: Carmelo Damon DO Summary Hospital Course Discharge Diagnosis: 1. Aspiration pneumonia noted on the chest x-ray. Present on admission and active. 2. Chest pain. 3. Anemia. Present on admission and stable. 4. Depression, Present on admission and stable. 5. Glaucoma, Present on admission and stable. 6. Dementia, Present on admission and stable. 7. Poor p.o. intake, present on admission and active. Hospital Course: This is an 87 year old male with PMH of dementia who was admitted for aspiration pneumonia. He had chest pain as well, but likely due to pneumonia as there was no evidence of ACS initially. He was treated with cefepime, vancomycin, and flagyl. Discussions with family were complex, but ultimately relayed that they wished to proceed with comfort measures and hospice. He was still on 2L of O2 at the time of discharge, but had completed 5 days of antibiotic therapy at the time of discharge. He was provided with comfort medications, hospice to continue comfort care at his assisted living facility. Time Spent with Patient Time spent: Greater than 30 minutes Exam Vital Signs (past 8 hours): - 08/22/23 07:00 Oxygen Delivery Method Nasal Cannula Fraction of Inspired Oxygen 28 SaO2/FiO2 Ratio 342 Oxygen Delivery Method Nasal Cannula Oxygen Flow Rate 2.5 Narrative Exam Narrative: Difficult to arouse today, not speaking, falls asleep easily. No apparent distress. Lungs are notable for some expiratory wheezing, normal rate and effort. Heart is regular, no murmur gallop or rub. Abdomen is soft, non distended. Extremities are free of edema. Objective Labs 08/18/23 12:39 08/21/23 07:15 Labs: Laboratory Results - last 24 hr 08/18/23 03:50 Hct 23.6 L Folate Hemolysate 251.9 RBC Folate Hemolysate 1067 [facility] Medical History Incontinence without sensory awareness Cervical stenosis of spine Dementia Erectile dysfunction Nocturia Transient global amnesia Gastroesophageal reflux disease without esophagitis (04/10/17) Diverticulosis of large intestine without hemorrhage (06/15/15) Osteoarthritis of hip (10/21/14) Benign prostatic hyperplasia with urinary obstruction (05/30/14) Malignant melanoma (04/07/14) Hyperlipidemia, mixed Hypertension, essential Surgical History History of cataract removal with insertion of prosthetic lens (03/2010) History of knee replacement (2005) Status post appendectomy (1946) Family History Father Family history of diabetes mellitus Family history of Parkinson's disease Mother Family history of diabetes mellitus CVD (cardiovascular disease) Brother No problems noted. 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 travel history: over 6 months ago Smoking Status: Former smoker Tobacco: How many years used: 20 Smokeless tobacco user: other quit status: quit date established second hand exposure: No alcohol intake: current substance use type: does not use Discharge Plan Discharge Plan Patient Disposition: Hospice - Home Transfer to: [facility] Provider Discharge Comment: 87 M with dementia, admitted with aspiration pneumonia. He was treated with antibiotics during admission. Transfer to [facility] with hospice to open today 08/22. He may not be able to take oral medications, comfort medications provided. Discharge orders & Medications Prescriptions: New scopolamine base 1 mg over 3 days patch 3 day 1 patch transdermal Q3D PRN (Reason: secretions) Qty: 10 0RF morphine concentrate 100 mg/5 mL (20 mg/mL) solution 10 mg PO Q3H PRN (Reason: dyspnea) 7 Days Qty: 120 0RF lorazepam [Lorazepam Intensol] 2 mg/mL concentrate 1 mg PO Q4HR 7 Days Qty: 30 0RF Continued tamsulosin [Flomax] 0.4 mg capsule 0.4 mg PO QDAY Qty: 90 2RF timolol maleate 0.5 % drops 1 drp EYE-LEFT DAILY 90 Days Qty: 10 ondansetron 4 mg tablet,disintegrating 4 mg PO Q6H PRN (Reason: nausea and vomiting) Qty: 60 3RF quetiapine 25 mg Tablet 25 mg PO DAILY latanoprost 0.005 % Drops 1 drp EYE-LEFT DAILY acetaminophen 325 mg Tablet 1 - 2 mg PO QID PRN (Reason: Pain, Mild) citalopram 10 mg Tablet 10 mg PO DAILY meloxicam 7.5 mg Tablet 7.5 mg PO DAILY brimonidine 0.2 % Drops 1 drp EYE-LEFT DAILY docusate sodium 100 mg Capsule 100 mg PO DAILY bisacodyl 5 mg Tablet,Delayed Release (Dr/Ec) 5 mg PO BEDTIME ketoconazole 2 % Cream 1 applic TOPICAL DAILY bisacodyl 5 mg Tablet 5 mg PO BEDTIME guaifenesin 100 mg/5 mL Liquid 200 mg PO Q4H PRN (Reason: Cough) alum-mag hydroxide-simeth [Mintox] 200-200-20 mg/5 mL Suspension 15 ml PO QID PRN (Reason: heart burn) Rx Instructions: administer between meals and at bedtime rivastigmine 9.5 mg/24 hour Patch 24 Hour 1 patch TRANSDERMAL DAILY polyethylene glycol 3350 4 gram Powder In Packet 4 g PO DAILY Follow up/Referrals: Jeremias Caal MD [Primary Care Provider] - Diet/Activity/Treatments Diet: Diet as Tolerated Activity: As tolerated, no restrictions Visit Report/Discharge Packet Stand Alone Forms: Patient Portal/API, Stroke Signs & Symptoms Discharge Data Primary Care Provider: Jeremias Caal Quality VTE Deep Vein Thrombosis/Pulmonary Embolism Present on Admission: No
[2023-08-22 09:32] LABS: Vancomycin Trough 14.3 ug/mL (10-20)
[2023-08-22] MEDS: VANCOMYCIN 1,000 MG/200 ML PIGGYBACK 200 MG IV (10:36)
[2023-08-22 11:36] VITALS: PULSE 100; RESP 22; O2SAT 95
[2023-08-22] MEDS: ALBUTEROL 2.5 MG/3 ML NEB (ADULT) INH (11:36)
--- NOTE | 2023-08-22 12:25 | CM.DPC ---
DCP Cont. Reviewed EMR and team rounds for status updates. Plan is for pt to d/c back to [facility] today with [facility] this afternoon. Clinicals faxed, S is set to pick pt up at 1:00pm for transport. No further needs identified at this time.
[2023-08-22] MEDS: MORPHINE 2 MG/ML INJ 1 MG IV (13:02)
--- NOTE | 2023-08-22 13:26 | PC.NURSE ---
Discharge Note Patient A&O to self and at baseline. Patient premedicated prior to discharge and PIVs discontinued. Family updated multiple times on discharge plan by this RN and CM. Report given to S crew, all questions/concerns addressed. Discharge packet given to S crew. Family packed and took all of patient's belongings. Patient discharged from floor to S crew for transfer to [facility].
== END 2023-08-22 13:20 | disposition hospice, home (50) | DRG 177 ==
LOC: ED 17:58 → AC 22:27
PROVIDERS: Emergency Medicine; Hospitalist; Admitting Provider Internal Medicine; Emergency Provider Emergency Medicine; Family Provider Internal Medicine; PCP Internal Medicine; Referring Provider Emergency Medicine; Visit Provider Internal Medicine
DX: J69.0 Pneumonitis due to inhalation of food and vomit (principal); J96.01 Acute respiratory failure with hypoxia; F32.A Depression, unspecified; H40.9 Unspecified glaucoma; F03.90 Unspecified dementia, unspecified severity, without behavioral disturbance, psychotic disturbance, mood disturbance, and anxiety; R07.9 Chest pain, unspecified; D64.9 Anemia, unspecified; Z87.891 Personal history of nicotine dependence; R05.9 Cough, unspecified; R13.12 Dysphagia, oropharyngeal phase
CPT/HCPCS: 36415; 71045; 71275; 74177; 74230; 80048; 80053; 80202; 81001; 82550; 82565; 82607; 82747; 83540; 83550; 83605; 83880; 84100; 84145; 84484; 85014; 85018; 85025; 85045; 85610; 86850; 86900; 86901; 87040; 87086; 87154; 87633; 92526; 92610; 92611; 93005; 94640; 94762; 96365; 96366; 96367; 97162; 97530; 99284; 99285; J0136; J0692; J1650; J2270; J7613